=== PATIENT | male | born 1980 | race Caucasian/White ===

== ENCOUNTER 2017-07-09 15:26 | Inpatient (IN) | payer OTHER ==
[~2017-07-09] VITALS: Ht 175.3 cm; Wt 154.2 kg
--- NOTE | 2017-07-09 16:12 | ED GENERAL ADULT ---
See Addendum History of Present Illness General Chief Complaint: ETOH/Drug Related Complaint Stated Complaint: ETOH DETOX Source: patient, family Exam Limitations: no limitations Vital Signs & Intake/Output Vital Signs & Intake/Output Vital Signs Date Time Temp Pulse Resp B/P B/P Pulse O2 O2 Flow FiO2 Mean Ox Delivery Rate 07/10 1224 98.5 84 20 142/110 07/10 1224 98.5 84 20 142/110 98 Room Air 07/10 1015 85 18 160/110 07/10 1015 85 18 160/110 98 Room Air Room Air 07/10 0845 98.7 87 18 180/100 07/10 0818 98.7 87 18 180/100 98 Room Air 07/10 0815 98.7 87 18 180/100 07/10 0614 98.1 120 18 184/118 07/10 0534 98.0 71 20 119/79 07/10 0330 98.0 70 20 122/80 07/10 0130 98.0 70 20 118/72 07/09 2330 98.0 72 20 132/84 07/09 2308 98.2 92 18 157/95 95 Room Air 07/09 2116 97.8 89 18 147/93 07/09 2116 97.8 89 18 147/93 95 Room Air 07/09 1901 98.7 89 17 151/76 07/09 1900 98.7 89 16 151/76 95 Room Air 07/09 1705 Room Air 07/09 1700 98.0 94 17 158/98 07/09 1700 98.0 94 17 158/90 94 Room Air 07/09 1537 96.7 102 18 170/114 95 Room Air ED Intake and Output 07/10 0000 07/09 1200 Intake Total Output Total Balance Patient 350 lb Weight Weight Reported by Patient Measurement Method Allergies Coded Allergies: No Known Allergies (07/09/17) Triage Note: PT STATES HE DRINKS TO MAKE HIMSELF FEEL OK. PT UNSURE OFHOW MUCH HER DRINKS DAILY. PT STATES HE KICKED ALL THE OTHER DRUGS HE USED BUT HE CAN'T KICK THIS. PT STATES HE HAS BEEN DRINKING FOR THE PAST MONTH. PT HAS NEVER GONE THROUGH ETOH DETOX. PT STATES HE GETS VERY SHAKEY WHEN HE TRIES TO STOP DRINKING AND THAT IS WHY HE WANTS TO STOP. PT DENIES SEIZURE ACTIVITY. Triage Nurses Notes Reviewed? yes Onset: Gradual Duration: worse persistent since (1 MONTH) Timing: recent history Injury Environment: home Severity: severe Severity Numbers: 10 No Modifying Factors: none HPI: Pako is a 36-year-old male presenting to the emergency department requesting alcohol detox. He has been drinking alcohol daily for the past year and a half but it's been worse over the past 1 month. He usually drinks a pint of vodka daily. Usually mixes it with Gatorade. When he does not drink he feels very shaky. He needs to drink in the morning. Last drink was just prior to arrival. Denies any other drug use. He currently takes methadone daily for 4 history of opiate abuse. Patient denying any chest pain palpitations or shortness of breath. No abdominal pain. He does report that he's been increasingly depressed and uses alcohol to cope with his symptoms. When he does not drink he does not want to do anything. (Daniela Santos) Past History Travel History Traveled to [place] past 21 day No Medical History Any Pertinent Medical History? see below for history Psychiatric: alcohol dependence, POLYSUBTANCE ABUSE Surgical History Surgical History: non-contributory Psychosocial History What is your primary language Amharic Tobacco Use: Never used ETOH Use: alcoholic Illicit Drug Use: heroin Family History Hx Contributory? No (Daniela Santos) Review of Systems Review of Systems Constitutional: Reports: no symptoms. Comments Review of systems: See HPI, All other systems negative. Constitutional, no chills fever or weight loss HEENT: No visual changes no sore throat no congestion Cardiovascular: No chest pain ,palpitation , orthopnea or ankle swelling Skin, no jaundice no rashes Respiratory: No dyspnea cough sputum or hemoptysis GI: No nausea no vomiting : No dysuria No hematuria Muscle skeletal: no back pain, no neck pain, Neurologic: No numbness no confusion Psych: Positive stress, anxiety, positive depression Heme/endocrine: No bruising no bleeding no polyuria or polydipsia Immunology: No splenectomy or history of AIDS (Daniela Santos) Physical Exam Physical Exam General Appearance: no apparent distress, alert, awake, anxious, obese Comments: Well-developed well-nourished person in no acute distress HEENT: Normocephalic, atraumatic Neck: Normal inspection Back: Nontender Cardiovascular: Regular rate and rhythms no murmurs rubs or gallops, normal JVP Respiratory: Chest nontender. No respiratory distress.breath sounds clear to auscultation bilaterally Extremity: No edema. Neuro: Alert oriented x3 Skin: No appreciable rash on exposed skin, skin is warm and dry. Psych: Slightly anxious appearing, tearful , memory and judgment is normal. Core Measures ACS in differential dx? No CVA/TIA Diagnosis: No Sepsis Present: No Sepsis Focused Exam Completed? No (Darwin CROWELL,Daniela) Progress Differential Diagnoses I considered the following diagnoses in my evaluation of the patient: alcohol intoxication, alcohol withdrawal, polysubstance abuse, electrolyte abnormality Plan of Care: Orders Procedure Date/time Status Regular Diet 07/10 B Active Patient Data 07/10 1404 Active OXYGEN SETUP (GEN) 07/10 1342 Active Saline Lock 07/10 1342 Active Admit to inpatient 07/10 1342 Active Vital Signs 07/10 1342 Active Activity/Ambulation 07/10 1342 Active Code Status 07/10 1342 Active CASE MANAGEMENT CONSULT 07/10 0844 Active CASE MANAGEMENT CONSULT 07/10 0023 Active ETHANOL 07/09 2331 Complete ED CRISIS PSYCH CONSULT 07/09 1842 Active CIWA 07/09 1613 Active URINE DRUG SCREEN FOR ER ONLY 07/09 1613 Complete MAGNESIUM 07/09 1613 Complete LIPASE 07/09 1613 Complete ETHANOL 07/09 1613 Complete COMPREHENSIVE METABOLIC PANEL 07/09 1613 Complete CBC WITHOUT DIFFERENTIAL 07/09 1613 Complete Current Medications Sig/Vasu Start time Last Medication Dose Stop Time Status Admin Lorazepam 1 MG Q2P PRN 07/10 0845 AC 07/10 (Ativan) 1237 Lorazepam 2 MG Q2P PRN 07/10 0845 AC (Ativan) Methadone HCl 130 MG ONCE ONE 07/10 0630 CAN (Dolophine) 07/10 0631 Ondansetron HCl 4 MG Q4-6 PRN PRN 07/10 0615 AC 07/10 (Zofran) 0613 Gabapentin 300 MG Q8 07/10 0008 UNVr 07/10 (Neurontin) 0613 Oxycodone/ 0 .STK-MED ONE 07/09 1643 CAN Acetaminophen (Percocet) Laboratory Tests 07/10/17 0005: Serum Alcohol 148.0 07/09/17 1830: Urine Opiates Screen < 100.00, Methadone Screen > 735 H, Barbiturate Screen < 60, Ur Phencyclidine Scrn < 6.00, Amphetamines Screen < 100, U Benzodiazepines Scrn < 85, Urine Cocaine Screen < 50, Urine Cannabis Screen < 5.00 07/09/17 1625: Anion Gap 13, Estimated GFR > 60, BUN/Creatinine Ratio 7.5, Glucose 101 H, Calcium 8.6, Magnesium 1.8, Total Bilirubin 0.9, AST 411 H, ALT 178 H, Alkaline Phosphatase 178 H, Total Protein 8.3 H, Albumin 4.3, Globulin 4.0, Albumin/Globulin Ratio 1.1, Lipase 249, CBC w Diff NO MAN DIFF REQ, RBC 4.02 L, MCV 95.6 H, MCH 32.2 H, RDW 14.2, MPV 8.5, Gran % 56.9, Lymphocytes % 35.7, Monocytes % 5.4, Eosinophils % 1.7, Basophils % 0.3, Absolute Granulocytes 4.0, Absolute Lymphocytes 2.5, Absolute Monocytes 0.4, Absolute Eosinophils 0.1, Absolute Basophils 0, PUBS MCHC 33.7, Serum Alcohol 363.0 Initial ED EKG: none Hand-Off Endorsed To: Rayray Morel MD Endorsed Time: 0100 Pending: other (Daniela Santos) Hand-Off Endorsed To: Demar Hylton MD (Rayray Morel MD) Comments: Upon arising alcohol withdrawal symptoms increased with visual hallucination nausea diaphoresis headache. Case management consult patient cleared for hospitalization. (Demar Hylton MD) Departure Departure Disposition: STILL A PATIENT Condition: Stable Referrals: Patient Has No Primary Care Dr (PCP/Family) Departure Forms: Customer Survey General Discharge Information (Daniela Santos) PA/TECHNOLOGY CONSULTANT Co-Sign Statement Statement: ED Attending supervision documentation- [] I saw and evaluated the patient. I have also reviewed all the pertinent lab results and diagnostic results. I agree with the findings and the plan of care as documented in the PA's/TECHNOLOGY CONSULTANT's documentation. [x] I have reviewed the ED Record and agree with the PA's/TECHNOLOGY CONSULTANT's documentation. [] Additions or exceptions (if any) to the PAs/TECHNOLOGY CONSULTANT's note and plan are summarized below: [] (Rayray Morel MD) Departure Time of Disposition: 1343 Clinical Impression Primary Impression: Alcohol withdrawal hallucinosis Secondary Impressions: Alcohol abuse Alcohol withdrawal Qualifiers: Complication of substance-induced condition: with unspecified complication Qualified Code: F10.239 - Alcohol dependence with withdrawal, unspecified Admission Note Spoke With: Kenneth Mcguire MD Documentation of Exam: Documentation of any treatments & extenuating circumstances including Concerns Regarding Discharge (functional status, medication knowledge or non-compliance, living conditions, etc.) that warrant an admission rather than observation: Benzodiazepine to prevent alcohol withdrawal serial CIWA medication adjustment psychiatry evaluation for alcohol dependence continuing care discharge planning Alcohol Withdrawl Admission ED Alcohol Detox Admission d/t: Alcohol Hallucinosis (Warner HARRIS,Demar) Critical Care Note Critical Care Note Critical Care Time: non-applicable (Darwin CROWELL,Daniela) Critical Care Note Critical Care Time: 30-74 min (40) (Demar Hylton MD)
[2017-07-09 16:49] LABS: ABSOLUTE BASOPHIL COUNT 0 /CUMM (0.0-0.2); ABSOLUTE EOSINOPHIL COUNT 0.1 /CUMM (0.0-0.7); ABSOLUTE LYMPH COUNT 2.5 /CUMM (1.2-3.4); ABSOLUTE MONOCYTE COUNT 0.4 /CUMM (0.10-0.60); BASOPHIL % 0.3 % (0.0-2.0); EOSINOPHIL % 1.7 % (0-5); GRANULOCYTE % 56.9 % (42.2-75.2); HEMATOCRIT 38.4 % (42-52); MEAN CORPUSCULAR HGB 32.2 PG (27.0-31.0); MEAN CORPUSCULAR HGB CONC 33.7 G/DL (33.0-37.0); MEAN CORPUSCULAR VOLUME 95.6 FL (80.0-94.0); MEAN PLATELET VOLUME 8.5 FL (7.4-10.4); PLATELET COUNT 213 /CUMM (130-400); RBC DISTRIBUTION WIDTH 14.2 % (11.5-14.5); RED BLOOD CELL CT 4.02 /CUMM (4.70-6.10)
[2017-07-09 17:00] VITALS: BP 158/98
[2017-07-09 19:01] VITALS: BP 151/76
[2017-07-09 21:16] VITALS: BP 147/93
[2017-07-09 23:30] VITALS: BP 132/84
[2017-07-10] VITALS (12 sets, daily range): BP systolic 118–184; BP diastolic 72–134
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
[2017-07-11] VITALS (12 sets, daily range): BP systolic 112–162; BP diastolic 80–118
--- NOTE | 2017-07-11 04:52 | Event Note ---
Event Note Event Note: S: CIWA running high patient, patient having visual and auditory hallucinations B: Patient is a 36-year-old male with a past medical history of obesity with gastric bypass in March 2014, chronic back pain currently on methadone, previously on oxycodone and had one admission for oxycodone detox 15 years ago presenting for alcohol withdrawal. A/R: Patient evaluated. Was sitting comfortably in bed. Not agitated. Continues to have visual and auditory hallucination CIWA Running high since midnight 16, 18, 21, 21, 21 Patient received 10mg of Ativan from 12am to 5am Patient went wandering off on the floor, was easily redirected to room Patient was evaluated multiple times during the night, he continued to have auditory hallucinations and visual hallucinations subsided he was confused but became oriented to place once. He remained non-agitated and was easily redirected through out the night -There is concern for transfer to ICU as he was requiring more monitoring than usual on general medicine floor. -ICU and telemetry no beds available -Nursing supervisory geographer contacted and agreed to keep patient on general medicine floor -Jose Oneal MD updated and agreed with the plan
[2017-07-11] MEDS ORDERED: CYANOCOBAL1000 MCG/2 IM (09:11)
[2017-07-11 09:52] LABS: ABSOLUTE BASOPHIL COUNT 0 /CUMM (0.0-0.2); ABSOLUTE EOSINOPHIL COUNT 0.2 /CUMM (0.0-0.7); ABSOLUTE GRANULOCYTE CT 3.2 /CUMM (1.4-6.5); ABSOLUTE LYMPH COUNT 1.3 /CUMM (1.2-3.4); ABSOLUTE MONOCYTE COUNT 0.3 /CUMM (0.10-0.60); BASOPHIL % 0.1 % (0.0-2.0); EOSINOPHIL % 3.1 % (0-5); GRANULOCYTE % 64.8 % (42.2-75.2); MEAN CORPUSCULAR HGB 32.7 PG (27.0-31.0); MEAN PLATELET VOLUME 9.5 FL (7.4-10.4); PLATELET COUNT 153 /CUMM (130-400); RBC DISTRIBUTION WIDTH 13.6 % (11.5-14.5); RED BLOOD CELL CT 3.64 /CUMM (4.70-6.10); WHITE BLOOD CELL COUNT 4.9 /CUMM (4.8-10.8)
--- NOTE | 2017-07-11 09:58 | PN- Housestaff ---
Lui HARRIS,[facility] 07/11/17 0958: Subjective Follow-up For: etoh detox Subjective: Fartun scoring 21 CIWA last night x4. Nurses concerned pt needs ICU however no ICU beds availible. Pt CIWA scoring <12 this afternoon. He still has some chills , tremors and anxiety when i visited him this afternooon. Nurses thought patient was hallucinating in the AM. Patient stated that he felt like he was dreaming. Denies any auditory or visual hallucinations this afternoon Review of Systems Constitutional: Reports: see HPI, chills. Cardiovascular: Reports: no symptoms. Respiratory: Reports: no symptoms. Gastrointestinal: Reports: no symptoms. Genitourinary: Reports: no symptoms. Musculoskeletal: Reports: see HPI. Neurological/Psychological: Reports: anxiety. Objective Last 24 Hrs of Vital Signs/I&O Vital Signs Date Time Temp Pulse Resp B/P B/P Pulse O2 O2 Flow FiO2 Mean Ox Delivery Rate 07/11 1999 98.7 96 18 140/100 07/11 1999 98.7 96 18 140/100 07/11 1826 100 150/110 07/11 1800 98.7 100 20 150/110 07/11 1800 98.7 100 20 150/110 93 Room Air 07/11 1600 99.0 80 20 155/100 07/11 1600 99.0 80 20 155/100 94 Room Air 07/11 1413 98.0 92 20 140/98 93 07/11 1200 98.5 101 18 154/118 90 07/11 1045 148/92 07/11 1022 98.5 101 18 154/118 90 07/11 0815 150/94 07/11 0800 98.5 88 18 150/94 90 Room Air 07/11 0653 98.8 89 20 112/80 93 Room Air 07/11 0400 90 150/92 07/11 0145 98.3 95 22 148/98 96 Room Air 07/11 0019 92 158/94 07/10 2300 92 158/92 07/10 2259 98.1 90 20 150/90 94 Room Air Intake & Output 07/11 1600 07/11 0800 07/11 0000 Intake Total 500 500 640 Output Total Balance 500 500 640 Intake, IV 0 Intake, Oral 500 500 640 Number 0 0 0 Bowel Movements Patient 340 lb Weight Weight Reported by Patient Measurement Method Physical Exam General Appearance: Alert, Oriented X3, Cooperative, Mild Distress Cardiovascular: tachycardia Lungs: Clear to Auscultation, Normal Air Movement Abdomen: Normal Bowel Sounds, Soft, No Tenderness Extremities: mild tremors of hands Vascular: 2+ radial pulses Assessment/Plan Assessment: A: 36 yr old with a pmhx of substance abuse and currently on methadone presenting for etoh detox P: #Etoh detox Max CIWA in 24 hrs: 21, multiple times Methadone > 735 etoh 363 -> 148 -cont ativan taper -cont ciwa -zofran prn, omeprazole -Continue multivitamins, B1, folate #Hypertensive urgency Blood pressure max 180/100 -> more stable at 140-150/100-110 #substance abuse -f/u psych and social work consult #transminitis/hepatitis most likely 2/2 to etoh Initial lfts: AST 411, ALT 178, ALP 178 -LFTs are downtrending -cont to monitor #HYPOthyroidism Patient states that he has a history of HYPERhyroidism and was on medications however stopped abruptly because they were not helping. Free t4 0.9, total t3 1.31 TSH 29.1 #chronic back pain -Confirm methadone dose in a.m. with [facility] #depression -f/u psych consult #DVT prophylaxis -Lovenox #FULL CODE Problem List: 1. Alcohol withdrawal 2. Hypothyroid 3. Transaminitis Pain Ratin Pain Location: none Pain Goal: Pain 4 or less Pain Plan: pain pathway Tomorrow's Labs & Rationales: cbc bep lft Mayte Jones 07/11/17 1308: Attending MD Review Statement Attending Statement Attending MD Statement: examined this patient, discuss w/resident/PA/OPERATING ROOM ASSISTANT, agreed w/resident/PA/OPERATING ROOM ASSISTANT, discussed with family, reviewed EMR data (avail), discussed with nursing, discussed with case mgmt, reviewed images, amended to note Attending Assessment/Plan: 36 o/m with pmh of alcohol abuse, Morbid obesity with BMI 47.5 s/p gastric bypass, hyperthyrodism, opiod dependence, smoker not complaint with meds requesting alcohol detox. Patient is found to have alcohol intoxication and admitted for impending alcohol withdrawal delirium tremens. DEIDRE on admission > 300. Patient recieved 24 mg of ativan overnight. He is found sleeoing comfortably in bed with no acute distress. Vitals reviewed. Continue CIWA, ativan protocol as per CIWA, thiamine, folic acid, clonidine prn for bp control, confirmed methadone in ER 120mg, pysch and SW eval. gi/dvt prophyalxis full code. Low threshold for ICU transfer if needs drip, closely monitor hemodynamcis. assistant food service manager aware.
[2017-07-12] VITALS (12 sets, daily range): BP systolic 138–152; BP diastolic 90–118
[2017-07-12] MEDS ORDERED: LEVOXYL75 MCG PO (05:43)
[2017-07-12 08:19] LABS: ABSOLUTE BASOPHIL COUNT 0 /CUMM (0.0-0.2); ABSOLUTE EOSINOPHIL COUNT 0.2 /CUMM (0.0-0.7); ABSOLUTE GRANULOCYTE CT 3.7 /CUMM (1.4-6.5); ABSOLUTE LYMPH COUNT 1.6 /CUMM (1.2-3.4); ABSOLUTE MONOCYTE COUNT 0.3 /CUMM (0.10-0.60); BASOPHIL % 0.6 % (0.0-2.0); EOSINOPHIL % 4.1 % (0-5); GRANULOCYTE % 62.8 % (42.2-75.2); HEMATOCRIT 36.3 % (42-52); MEAN CORPUSCULAR HGB 32.8 PG (27.0-31.0); MEAN CORPUSCULAR HGB CONC 34.1 G/DL (33.0-37.0); MEAN CORPUSCULAR VOLUME 96.3 FL (80.0-94.0); MEAN PLATELET VOLUME 9.8 FL (7.4-10.4); PLATELET COUNT 123 /CUMM (130-400); RBC DISTRIBUTION WIDTH 13.9 % (11.5-14.5); RED BLOOD CELL CT 3.77 /CUMM (4.70-6.10)
--- NOTE | 2017-07-12 10:04 | PN- Housestaff ---
Lui HARRIS,[facility] 07/12/17 1003: Subjective Follow-up For: etoh withdrawal Subjective: Patient was agitated this AM. Unsure if he has been getting his methadone. Asking if this hospital is a real place. Went to see patient later this afternoon. He was much more calm and said he was dreaming. Still complaining of occasional tremors. Review of Systems Constitutional: Reports: no symptoms. Cardiovascular: Reports: no symptoms. Respiratory: Reports: no symptoms. Gastrointestinal: Reports: no symptoms. Genitourinary: Reports: no symptoms. Musculoskeletal: Reports: no symptoms. Objective Last 24 Hrs of Vital Signs/I&O Vital Signs Date Time Temp Pulse Resp B/P B/P Pulse O2 O2 Flow FiO2 Mean Ox Delivery Rate 07/12 1337 83 144/118 07/12 1200 98.4 83 20 144/118 07/12 0920 94 155/110 07/12 0730 98.6 96 20 150/104 95 Room Air 07/12 0508 152/110 07/12 0300 98.2 94 18 152/110 07/12 0155 98.3 84 20 152/104 94 07/12 0029 97.5 89 20 96 07/12 0000 97.5 89 20 138/98 07/11 2200 97.9 92 20 162/99 07/11 2000 98.7 96 18 140/100 07/11 2000 98.7 96 18 140/100 07/11 1826 100 150/110 07/11 1800 98.7 100 20 150/110 07/11 1800 98.7 100 20 150/110 93 Room Air 07/11 1600 99.0 80 20 155/100 07/11 1600 99.0 80 20 155/100 94 Room Air Intake & Output 07/12 1600 07/12 0800 07/12 0000 Intake Total 740 Output Total 100 Balance 740 -100 Intake, Oral 740 Number 0 Bowel Movements Output, Urine 100 Physical Exam General Appearance: Alert, Oriented X3, Cooperative, Mild Distress Skin Temp/Moisture Exam: Warm/Dry Cardiovascular: Normal S1, Normal S2, tachycardia Lungs: Clear to Auscultation, Normal Air Movement Abdomen: Normal Bowel Sounds, Soft, No Tenderness Vascular: 2+ radial pulses Assessment/Plan Assessment: A: 36 yr old with a pmhx of substance abuse and currently on methadone presenting for etoh detox P: #Etoh detox Max CIWA in 24 hrs: 19 Methadone > 735 etoh 363 -> 148 -Seen by psychiatry who increased his ativan to 3mg q4 -avoid haldol as qtc >500 -cont ativan taper -cont ciwa -zofran prn, omeprazole -Continue multivitamins, B1, folate -cont his methadone 120mg daily (I confirmed with [facility]T fondation) -follow psych and SW recommendations #Hypertensive urgency Blood pressure max 180/100 -> more stable at 140-150/100-110 -increased clonidine to .2 q8 #substance abuse -f/u psych and social work consult #transminitis/hepatitis most likely 2/2 to etoh Initial lfts: AST 411, ALT 178, ALP 178 -LFTs are downtrending -cont to monitor #HYPOthyroidism Patient states that he has a history of HYPERhyroidism and was on medications however stopped abruptly because they were not helping. Free t4 0.9, total t3 1.31 TSH 29.1 #chronic back pain -Confirm methadone dose in a.m. with [facility] #depression -f/u psych consult #DVT prophylaxis -Lovenox #FULL CODE Problem List: 1. Alcohol withdrawal 2. Hypothyroid Pain Ratin Pain Location: none Pain Goal: Pain 4 or less Pain Plan: pain pathway Tomorrow's Labs & Rationales: cbc bep Mayte Jones 07/12/17 1305: Attending MD Review Statement Attending Statement Attending MD Statement: examined this patient, discuss w/resident/PA/PRIVATE CHEF, agreed w/resident/PA/PRIVATE CHEF, discussed with family, reviewed EMR data (avail), discussed with nursing, discussed with case mgmt, reviewed images, amended to note Attending Assessment/Plan: 36 o/m with pmh of alcohol abuse, Morbid obesity with BMI 47.5 s/p gastric bypass, hyperthyrodism, opiod dependence, smoker not complaint with meds requesting alcohol detox. Patient is found to have alcohol intoxication and admitted for impending alcohol withdrawal delirium tremens. DEIDRE on admission > 300. Patient was hypertensive this am. Patient recieved 24 mg of ativan overnight. He is found sleeoing comfortably in bed with no acute distress. Vitals reviewed. Continue CIWA, ativan protocol as per CIWA, thiamine, folic acid, also on amlodipine, clonidine prn for bp control , confirmed methadone in ER 120mg, pysch and SW eval. gi/dvt prophyalxis full code. Close monitoring. Psych recs follow.
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
[2017-07-13 01:30] VITALS: BP 140/98
[2017-07-13 05:22] VITALS: BP 140/92
--- NOTE | 2017-07-13 07:21 | PN- Housestaff ---
Lui HARRIS,[facility] 07/13/17 0721: Subjective Follow-up For: etoh detox substance abuse Subjective: No acute events overnight. Pt states he feels crappy this morning. Still has tremors of his hands. Review of Systems Constitutional: Reports: see HPI, malaise. Cardiovascular: Reports: no symptoms. Respiratory: Reports: no symptoms. Gastrointestinal: Reports: no symptoms. Genitourinary: Reports: no symptoms. Musculoskeletal: Reports: see HPI (tremor). Objective Last 24 Hrs of Vital Signs/I&O Vital Signs Date Time Temp Pulse Resp B/P B/P Pulse O2 O2 Flow FiO2 Mean Ox Delivery Rate 07/13 1357 98.0 93 20 160/78 94 Room Air Room Air 07/13 1056 140/92 07/13 0522 98.1 87 20 140/92 96 Room Air 07/13 0130 98.3 90 20 140/98 95 07/12 2240 98.4 92 20 146/100 96 Room Air 07/12 2200 98.4 92 20 146/100 Intake & Output 07/13 1600 07/13 0800 07/13 0000 Intake Total 2000 Output Total Balance 2000 Intake, IV 0 Intake, Oral 2000 Number 0 Bowel Movements Physical Exam General Appearance: Alert, Oriented X3, Cooperative, Mild Distress Cardiovascular: mild tachycardia Lungs: Clear to Auscultation, Normal Air Movement Abdomen: Normal Bowel Sounds, Soft, No Tenderness Vascular: 2+ radial pulses Current Medications: Current Medications Sig/Vasu Start time Last Medication Dose Route Stop Time Status Admin Amlodipine Besylate 5 MG DAILY 07/10 1630 AC 07/13 PO 1056 Clonidine 0.2 MG Q8P PRN 07/12 1600 AC PO Enoxaparin Sodium 40 MG DAILY 07/11 1000 AC 07/13 SC 1057 Folic Acid 1 MG DAILY 07/11 1000 AC 07/13 PO 1743 Influenza Virus 0.5 ML ONCE ONE 07/13 0815 DC Vaccine IM 07/13 0816 Levothyroxine Sodium 0.075 MG DAILY AC 07/12 0700 AC 07/13 PO 0600 Lorazepam 2 MG Q4 07/13 1000 AC 07/13 PO 1743 Lorazepam 3 MG Q4 07/12 1400 DC 07/13 PO 0601 Lorazepam 1 MG Q2P PRN 07/10 0845 AC 07/10 PO 1831 Lorazepam 2 MG Q2P PRN 07/10 0845 AC 07/13 PO 0011 Methadone HCl 120 MG 0600 07/13 0600 AC 07/13 PO 0601 Multivitamins 1 TAB DAILY 07/11 1000 AC 07/13 PO 1056 Nicotine 7 MG ONCE ONE 07/12 2215 TX 07/12 TOP 07/12 2216 2332 Nicotine 14 MG DAILY 07/11 0345 AC 07/13 TOP 1056 Omeprazole 20 MG DAILY 07/10 1630 AC 07/13 PO 1056 Ondansetron HCl 4 MG Q4-6 PRN PRN 07/10 0615 07/10 PO 0613 Polyethylene Glycol 17 GM DAILY 07/12 1000 AC 07/12 PO 0919 Senna/Docusate Sodium 2 TAB DAILY PRN 07/12 0600 AC PO Thiamine HCl 100 MG DAILY 07/11 1000 AC 07/13 PO 1743 Last 24 Hrs of Lab/Nilo Results Last 24 Hrs of Labs/Mics: Laboratory Tests 07/13/17 0750: Anion Gap 14, Estimated GFR > 60, BUN/Creatinine Ratio 11.3, Magnesium 1.8, CBC w Diff NO MAN DIFF REQ, RBC 3.63 L, MCV 96.9 H, MCH 33.0 H, MCHC 34.1, RDW 13.9, MPV 9.0, Gran % 68.0, Lymphocytes % 21.6, Monocytes % 6.2, Eosinophils % 3.8, Basophils % 0.4, Absolute Granulocytes 4.5, Absolute Lymphocytes 1.4, Absolute Monocytes 0.4, Absolute Eosinophils 0.3, Absolute Basophils 0 Assessment/Plan Assessment: A: 36 yr old with a pmhx of substance abuse and currently on methadone presenting for etoh detox P: #Etoh detox Max CIWA in 24 hrs: 14x1 (rest were 0,4,0) Methadone > 735 etoh 363 -> 148 -Seen by psychiatry who decreased his ativan to 2mg q4 today -avoid haldol as qtc >500 -cont ativan taper -cont ciwa -zofran prn, omeprazole -Continue multivitamins, B1, folate -cont his methadone 120mg daily (confirmed with [facility]T fondation) -follow psych and SW recommendations #SW issues Patient needs SW to help set up [employer] insurance for further after discharge care and psychiatric follow up #Hypertensive urgency Blood pressure max 180/100 -> more stable at 140-150/100-110 -continue clonidine to .2 q8 #substance abuse -f/u psych and social work consult #transminitis/hepatitis most likely 2/2 to etoh Initial lfts: AST 411, ALT 178, ALP 178 -LFTs are downtrending -cont to monitor #HYPOthyroidism Patient states that he has a history of HYPERhyroidism and was on medications however stopped abruptly because they were not helping. Free t4 0.9, total t3 1.31 TSH 29.1 #chronic back pain -Confirmed [facility]adone dose with [facility] #depression -f/u psych recs #DVT prophylaxis -Lovenox #FULL CODE Problem List: 1. Alcohol withdrawal 2. Hypothyroid 3. Depression Pain Ratin Pain Location: none Pain Goal: Pain 4 or less Pain Plan: pain pathway Tomorrow's Labs & Rationales: cbc bep lft Mayte Jones 07/13/17 1311: Attending MD Review Statement Attending Statement Attending MD Statement: examined this patient, discuss w/resident/PA/WIND TURBINE MECHANICAL ENGINEER, agreed w/resident/PA/WIND TURBINE MECHANICAL ENGINEER, discussed with family, reviewed EMR data (avail), discussed with nursing, discussed with case mgmt, reviewed images, amended to note Attending Assessment/Plan: 36 o/m with pmh of alcohol abuse, Morbid obesity with BMI 47.5 s/p gastric bypass, hyperthyrodism, opiod dependence, smoker non complaint with meds requesting alcohol detox. Patient is found to have alcohol intoxication and admitted for impending alcohol withdrawal delirium tremens. DEIDRE on admission > 300. Patient still needing clonidine prn for bp control as he is hypertensive. He is found sleeping comfortably in bed with no acute distress. Vitals reviewed. Continue CIWA, ativan protocol as per CIWA, thiamine, folic acid, also on amlodipine, clonidine prn for bp control, confirmed methadone in ER 120mg, pysch and SW eval. gi/dvt prophyalxis full code. Close monitoring. Psych recs follow.
[2017-07-13 08:24] LABS: ABSOLUTE BASOPHIL COUNT 0 /CUMM (0.0-0.2); ABSOLUTE EOSINOPHIL COUNT 0.3 /CUMM (0.0-0.7); ABSOLUTE GRANULOCYTE CT 4.5 /CUMM (1.4-6.5); ABSOLUTE LYMPH COUNT 1.4 /CUMM (1.2-3.4); ABSOLUTE MONOCYTE COUNT 0.4 /CUMM (0.10-0.60); BASOPHIL % 0.4 % (0.0-2.0); EOSINOPHIL % 3.8 % (0-5); HEMATOCRIT 35.1 % (42-52); MEAN CORPUSCULAR HGB CONC 34.1 G/DL (33.0-37.0); MEAN CORPUSCULAR VOLUME 96.9 FL (80.0-94.0); PLATELET COUNT 153 /CUMM (130-400); RBC DISTRIBUTION WIDTH 13.9 % (11.5-14.5); RED BLOOD CELL CT 3.63 /CUMM (4.70-6.10); WHITE BLOOD CELL COUNT 6.7 /CUMM (4.8-10.8)
--- NOTE | 2017-07-13 10:47 | PN- Psychiatry ---
Assessment/Plan Impression: The patient is responding well to the increase of lorazepam in the last 24 hours, not requiring as needed dosing in that time period. We will continue the taper protocol at a safe rate of reduction, as long as he is doing well. Dr. Poe, spring intern, noted that the last EKG on 07/12/17 showed QTc prolongation, and will not order PRN Haldol. The patient is improving, and we do not expect that hallucinosis will occur, which might indicate PRN Haldol, if severe agitation. The patient will need additional teaching on the use of his Synthroid, which he had stopped pre-hospital due to bad dreams. He again indicated reluctance to attend [facility], fearing that he will lose his methadone bottle privileges, due to alcohol detox. 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 The medical team had called [facility] to verify the patient's methadone dosing, and they likely know he is here for alcohol detox. Suggestion: 1. I will order lorazepam 2 mg PO every 4 hours, which we will review on the morning of 07/14/17. 2. Continue as needed lorazepam, per [facility] protocol. 3. The EKG of 07/12/1883 SR and QTc 502 mS, and antipsychotics in the event of severe agitation may not be given until QTc is less than 475. 4. SW consult to assist with aftercare planning. 5. Continue daily thiamine, MVI, folic acid. 6. If severe or violent agitation or aggression, please request comment from cardiology before considering haloperidol. If approved, consider haloperidol 1 to 2 mg, PO if possible, IM if unable to take PO, every 12 hours as needed. Before administration: ensure that there are no arrhythmias and that QTc is less than 475 mS. Also, monitor and replete potassium and magnesium to the upper portion of the normal range. Hold for respiratory depression or oversedation. We will continue to follow along with you. Thank you for this consult. Subjective Subjective: Alert and oriented, but off by one month. The patient reports that he slept well , and he is hungry and eating well. He denies AH, VH, or TH, and presents no laura delusions. He denies SI or HI, and is agreeable to continue treatment for ETOH detox. Objective Last 24 Hrs of Vital Signs/I&O Vital Signs Date Time Temp Pulse Resp B/P B/P Pulse O2 O2 Flow FiO2 Mean Ox Delivery Rate 07/13 0522 98.1 87 20 140/92 96 Room Air 07/13 0130 98.3 90 20 140/98 95 07/12 2240 98.4 92 20 146/100 96 Room Air 07/12 2200 98.4 92 20 146/100 07/12 1800 97.8 88 20 150/90 07/12 1600 97.8 88 20 150/90 07/12 1600 97.8 88 20 150/90 94 Room Air 07/12 1400 98.6 83 20 144/118 07/12 1337 83 144/118 07/12 1200 98.4 83 20 144/118 Physical Exam: Not performed Physical Exam General Appearance: no apparent distress, alert, awake, comfortable Neurologic/Psychiatric: awake, alert, oriented x 3, normal mood/affect Current Medications: Current Medications Sig/Vasu Start time Last Medication Dose Route Stop Time Status Admin Amlodipine Besylate 5 MG DAILY 07/10 1630 AC 07/12 PO 0920 Clonidine 0.2 MG Q8P PRN 07/12 1600 AC PO Clonidine 0.1 MG Q8P PRN 07/10 1545 DC 07/12 PO 1337 Enoxaparin Sodium 40 MG DAILY 07/11 1000 AC 07/12 SC 0925 Folic Acid 1 MG DAILY 07/11 1000 AC 07/12 PO 0919 Influenza Virus 0.5 ML ONCE ONE 07/13 0815 DC Vaccine IM 07/13 0816 Levothyroxine Sodium 0.075 MG DAILY AC 07/12 0700 AC 07/13 PO 0600 Lorazepam 2 MG Q4 07/13 1000 UNVr PO Lorazepam 3 MG Q4 07/12 1400 DC 07/13 PO 0601 Lorazepam See Dose Q1P PRN 07/10 1430 DC 07/12 Insts (1) IV 0555 Lorazepam 2 MG Q6H 07/10 1430 DC 07/12 PO 0925 Lorazepam 1 MG Q2P PRN 07/10 0845 AC 07/10 PO 1831 Lorazepam 2 MG Q2P PRN 07/10 0845 AC 07/13 PO 0011 Methadone HCl 120 MG 0600 07/13 0600 AC 07/13 PO 0601 Multivitamins 1 TAB DAILY 07/11 1000 AC 07/12 PO 0920 Nicotine 7 MG ONCE ONE 07/12 2215 UT 07/12 TOP 07/12 2216 2332 Nicotine 14 MG DAILY 07/11 0345 AC 07/12 TOP 0932 Omeprazole 20 MG DAILY 07/10 1630 AC 07/12 PO 0920 Ondansetron HCl 4 MG Q4-6 PRN PRN 07/10 0615 AC 07/10 PO 0613 Polyethylene Glycol 17 GM DAILY 07/12 1000 AC 07/12 PO 0919 Senna/Docusate Sodium 2 TAB DAILY PRN 07/12 0600 AC PO Thiamine HCl 100 MG DAILY 07/11 1000 AC 07/12 PO 0921 Dose Instructions: (1)Lorazepam: See admin criteria Results Last 24 Hrs of Labs/Mics: Laboratory Tests 07/13 0750 Chemistry Sodium (137 - 145 mmol/L) 140 Potassium (3.5 - 5.1 mmol/L) 3.7 Chloride (98 - 107 mmol/L) 96 L Carbon Dioxide (22 - 30 mmol/L) 29 Anion Gap (5 - 16) 14 BUN (9 - 20 mg/dL) 9 Creatinine (0.7 - 1.2 mg/dL) 0.8 Estimated GFR (>60 ml/min) > 60 BUN/Creatinine Ratio (7 - 25 %) 11.3 Magnesium (1.6 - 2.3 mg/dL) 1.8 Hematology CBC w Diff NO MAN DIFF REQ WBC (4.8 - 10.8 /CUMM) 6.7 RBC (4.70 - 6.10 /CUMM) 3.63 L Hgb (14.0 - 18.0 G/DL) 12.0 L Hct (42 - 52 %) 35.1 L MCV (80.0 - 94.0 FL) 96.9 H MCH (27.0 - 31.0 PG) 33.0 H MCHC (33.0 - 37.0 G/DL) 34.1 RDW (11.5 - 14.5 %) 13.9 Plt Count (130 - 400 /CUMM) 153 MPV (7.4 - 10.4 FL) 9.0 Gran % (42.2 - 75.2 %) 68.0 Lymphocytes % (20.5 - 51.1 %) 21.6 Monocytes % (1.7 - 9.3 %) 6.2 Eosinophils % (0 - 5 %) 3.8 Basophils % (0.0 - 2.0 %) 0.4 Absolute Granulocytes (1.4 - 6.5 /CUMM) 4.5 Absolute Lymphocytes (1.2 - 3.4 /CUMM) 1.4 Absolute Monocytes (0.10 - 0.60 /CUMM) 0.4 Absolute Eosinophils (0.0 - 0.7 /CUMM) 0.3 Absolute Basophils (0.0 - 0.2 /CUMM) 0
[2017-07-13 13:57] VITALS: BP 160/78
[2017-07-13 22:00] VITALS: BP 132/102
[2017-07-14] VITALS (7 sets, daily range): BP systolic 130–150; BP diastolic 72–102
--- NOTE | 2017-07-14 08:09 | PN- Housestaff ---
Lui HARRIS,[facility] 07/14/17 0809: Subjective Follow-up For: etoh withdrawal Subjective: No acute events overnight. Patient tired this AM. States he feels a little better than yesterday buts till tired. Still having tremors occasionally. Review of Systems Constitutional: Reports: malaise. Cardiovascular: Reports: no symptoms. Respiratory: Reports: no symptoms. Gastrointestinal: Reports: no symptoms. Genitourinary: Reports: no symptoms. Musculoskeletal: Reports: see HPI (tremors). Skin: Reports: no symptoms. Objective Last 24 Hrs of Vital Signs/I&O Vital Signs Date Time Temp Pulse Resp B/P B/P Pulse O2 O2 Flow FiO2 Mean Ox Delivery Rate 07/14 0529 97.7 83 22 130/88 95 Room Air 07/14 0208 97.9 84 20 130/98 94 Room Air 07/13 2200 97.9 79 20 132/102 95 Room Air 07/13 1357 98.0 93 20 160/78 94 Room Air Room Air 07/13 1056 140/92 Physical Exam General Appearance: Alert, Oriented X3, Cooperative, No Acute Distress Skin Temp/Moisture Exam: Warm/Dry Cardiovascular: Regular Rate, Normal S1, Normal S2 Lungs: Clear to Auscultation, Normal Air Movement Abdomen: Normal Bowel Sounds, Soft, No Tenderness Vascular: 2+ radial pulses Current Medications: Current Medications Sig/Vasu Start time Last Medication Dose Route Stop Time Status Admin Amlodipine Besylate 5 MG DAILY 07/10 1630 AC 07/13 PO 1056 Clonidine 0.2 MG Q8P PRN 07/12 1600 AC PO Enoxaparin Sodium 40 MG DAILY 07/11 1000 AC 07/13 SC 1057 Folic Acid 1 MG DAILY 07/11 1000 AC 07/13 PO 1743 Levothyroxine Sodium 0.075 MG DAILY AC 07/12 0700 AC 07/14 PO 0506 Lorazepam 2 MG Q4 07/13 1000 AC 07/14 PO 0505 Lorazepam 3 MG Q4 07/12 1400 DC 07/13 PO 0601 Lorazepam 1 MG Q2P PRN 07/10 0845 AC 07/10 PO 1831 Lorazepam 2 MG Q2P PRN 07/10 0845 AC 07/13 PO 2049 Methadone HCl 120 MG 0600 07/13 0600 AC 07/14 PO 0505 Multivitamins 1 TAB DAILY 07/11 1000 AC 07/13 PO 1056 Nicotine 14 MG DAILY 07/11 0345 07/13 TOP 1056 Omeprazole 20 MG DAILY 07/10 1630 AC 07/13 PO 1056 Ondansetron HCl 4 MG Q4-6 PRN PRN 07/10 0615 07/10 PO 0613 Polyethylene Glycol 17 GM DAILY 07/12 1000 AC 07/12 PO 0919 Senna/Docusate Sodium 2 TAB DAILY PRN 07/12 0600 AC PO Thiamine HCl 100 MG DAILY 07/11 1000 AC 07/13 PO 1743 Assessment/Plan Assessment: A: 36 yr old with a pmhx of substance abuse and currently on methadone presenting for etoh detox P: #Etoh detox Max CIWA in 24 hrs: 19x1 (rest were 0,0,,6,5,0) Methadone > 735 etoh 363 -> 148 -currently 2mg q4 ativan -avoid haldol as qtc >500 -cont ativan taper per psych -cont ciwa -zofran prn, omeprazole -Continue multivitamins, B1, folate -cont his methadone 120mg daily (confirmed with [facility]) -follow psych and SW recommendations #SW issues Patient needs to help set up [employer] insurance for further after discharge care and psychiatric follow up #high cholesterol total cholesterol 231, LDL 135, HDL 67 Cholesterol/HDL ratio 3.4 (normal) -life style modification -consider statin outpatient #Hypertensive urgency Blood pressure max 180/100 -> more stable at 130-140/90-100 -continue clonidine to .2 q8 #substance abuse -f/u psych and social work consult #transminitis/hepatitis most likely 2/2 to etoh Initial lfts: AST 411, ALT 178, ALP 178 Current (07/14): T bili 1.4, direct bili 0.9, AST 135, ALT 85, ALP 112 -LFTs are downtrending -cont to monitor #HYPOthyroidism Patient states that he has a history of HYPERhyroidism and was on medications however stopped abruptly because they were not helping. Free t4 0.9, total t3 1.31 TSH 29.1 #chronic back pain -Confirmed methadone dose with [facility] #depression -f/u psych recs #DVT prophylaxis -Lovenox #FULL CODE Problem List: 1. Alcohol abuse 2. Hypothyroid Pain Ratin Pain Location: none Pain Goal: Pain 4 or less Pain Plan: pain pathway Tomorrow's Labs & Rationales: cbc bep lft Mayte Jones 07/14/17 1117: Attending MD Review Statement Attending Statement Attending MD Statement: examined this patient, discuss w/resident/PA/ASPHALT ROLLER OPERATOR, agreed w/resident/PA/ASPHALT ROLLER OPERATOR, discussed with family, reviewed EMR data (avail), discussed with nursing, discussed with case mgmt, reviewed images, amended to note Attending Assessment/Plan: 36 o/m with pmh of alcohol abuse, Morbid obesity with BMI 47.5 s/p gastric bypass, hyperthyrodism, opiod dependence, smoker non complaint with meds requesting alcohol detox. Patient is found to have alcohol intoxication and admitted for impending alcohol withdrawal delirium tremens. DEIDRE on admission > 300. He is sleeping comfortably in bed with no acute distress. Vitals reviewed. Continue CIWA, ativan protocol as per CIWA, thiamine, folic acid, also on amlodipine, clonidine prn for bp control, confirmed methadone in ER 120mg, pysch following, taper as per patricia and THOM lock. Constipation : on miralax/senna. Monitor bowel movement. gi/dvt prophyalxis full code. follow Psych recs.
[2017-07-14 09:58] LABS: ABSOLUTE BASOPHIL COUNT 0 /CUMM (0.0-0.2); ABSOLUTE EOSINOPHIL COUNT 0.2 /CUMM (0.0-0.7); ABSOLUTE GRANULOCYTE CT 4.5 /CUMM (1.4-6.5); ABSOLUTE LYMPH COUNT 1.5 /CUMM (1.2-3.4); ABSOLUTE MONOCYTE COUNT 0.5 /CUMM (0.10-0.60); BASOPHIL % 0.4 % (0.0-2.0); EOSINOPHIL % 2.9 % (0-5); GRANULOCYTE % 67.2 % (42.2-75.2); HEMATOCRIT 35.4 % (42-52); MEAN CORPUSCULAR HGB 32.6 PG (27.0-31.0); MEAN CORPUSCULAR HGB CONC 33.5 G/DL (33.0-37.0); MEAN CORPUSCULAR VOLUME 97.4 FL (80.0-94.0); MEAN PLATELET VOLUME 8.6 FL (7.4-10.4); PLATELET COUNT 157 /CUMM (130-400); RBC DISTRIBUTION WIDTH 14.2 % (11.5-14.5); RED BLOOD CELL CT 3.63 /CUMM (4.70-6.10); WHITE BLOOD CELL COUNT 6.7 /CUMM (4.8-10.8)
[2017-07-14] MEDS ORDERED: ONE DAILY MULT1 EAC2 PO (11:28)
[2017-07-14] MEDS ORDERED: FOLIC ACID1 M1 PO (11:28)
[2017-07-14] MEDS ORDERED: CATAPRES0.2 MG PO (11:28)
[2017-07-14] MEDS ORDERED: VITAMIN B-1100 MG PO (11:28)
[2017-07-14] MEDS ORDERED: AMLODIPINE BESYL5 M1 PO (11:28)
--- NOTE | 2017-07-14 11:29 | Patient Discharge Instructions ---
Discharge Instructions General Discharge Information Special Instructions: Please folllow up with your pcp in 1-2 weeks. Please follow up with your licensed physical therapist assistant in 1-2 weeks for your thyroid. Please continue psychiatric care. Please take your medications as perscribed. Acute Coronary Syndrome Inclusion Criteria At DC or during hospital stay patient has or had the following: Discharge Core Measures Meds if any: Prescribed or Continued at Discharge Meds if any: NOT Prescribed or Continued at Discharge Congestive Heart Failure Inclusion Criteria At DC or during hospital stay patient has or had the following: Discharge Core Measures Meds if any: Prescribed or Continued at Discharge Meds if any: NOT Prescribed or Continued at Discharge Cerebrovascular accident Inclusion Criteria At DC or during hospital stay patient has or had the following: CVA/TIA Diagnosis No Discharge Core Measures Meds if any: Prescribed or Continued at Discharge Meds if any: NOT Prescribed or Continued at Discharge Venous thromboembolism Discharge Core Measures - Per Current guidelines, there needs to be overlap - treatment for the first 5 days of Warfarin therapy. - If discharged on Warfarin prior to 5 days of - overlap therapy, the patient will need to be - assessed for post discharge needs including - *Post discharge parental anticoagulation - *Warfarin and/or parental anticoagulation education - *Follow up date to check INR post discharge Meds if any: Prescribed or Continued at Discharge Note: Overlap Therapy is Warfarin and Anticoagulant Meds if any: NOT Prescribed or Continued at Discharge
--- NOTE | 2017-07-14 15:24 | PN- Psychiatry ---
Assessment/Plan Impression: The patient's CIWA scores are increasing, and his BP was elevated in the late morning. He is now reporting visual hallucinations, in the form of seeing a fly. He states that he has not been accurately reporting his symptoms, visual disturbances, fearing being labeled as a drug-seeker. These conditions suggest holding steady at the current scheduled lorazepam dosing, and monitor for worsening hallucinosis. The patient was encouraged to report his symptoms accurately to treat him most effectively and safely, over the shortest course possible. CIWA from today, 1400: 9-4-7-9-7-7-6-0-8-8-8-87-4-0-0 VS @ 1149: 150/72, 81, 97.8, 20, 92% RA Last 24 hours of lorazepam schedule 12 mg + PRN lorazepam 2 mg = 14 mg No haloperidol required, but should be avoided if possible, due to QTc prolongation in excess of 475 mS. Suggestion: 1. Continue lorazepam, scheduled, at 2 mg PO every 4 hours. Hold for oversedation or respiratory depression; do not hold for sleep. 2. Continue as needed lorazepam, per CIWA protocol. 3. Repeat EKG in preparation of the need for antipsychotics in the event of severe agitation, which may not be given if QTc is greater than 475. 4. SW consult to assist with aftercare planning. 5. Continue daily thiamine, MVI, folic acid. 6. If severe or violent agitation or aggression, please request comment from cardiology before considering haloperidol. If approved, consider haloperidol 1 to 2 mg, PO if possible, IM if unable to take PO, every 12 hours as needed. Before administration: ensure that there are no arrhythmias and that QTc is less than 475 mS. Also, monitor and replete potassium and magnesium to the upper portion of the normal range. Hold for respiratory depression or oversedation. We will continue to follow along with you. Please call logistics solution manager psychiatry over the weekend, X. [phone], or X. [phone], if the patient's alcohol detox worsens, or if you feel it has improved to the point that the lorazepam taper can be continued at a daily reduction of 20%. Thank you for this consult. Subjective Subjective: Alert and oriented. Denies AH or TH, reports visual hallucinations in the form of seeing shadows, like mice, out of the corner of his eye during this interview. He states that he awakened disoriented last night, beleiving thathis father was present, but when he looked, he did not see anyone. Objective Last 24 Hrs of Vital Signs/I&O Vital Signs Date Time Temp Pulse Resp B/P B/P Pulse O2 O2 Flow FiO2 Mean Ox Delivery Rate 07/14 1149 97.8 81 20 150/72 92 Room Air 07/14 1000 74 122/92 07/14 0529 97.7 83 22 130/88 95 Room Air 07/14 0208 97.9 84 20 130/98 94 Room Air 07/13 2200 97.9 79 20 132/102 95 Room Air Intake & Output 07/14 1600 07/14 0800 07/14 0000 Intake Total Output Total Balance Patient 340 lb Weight Physical Exam: Not performed. Physical Exam General Appearance: Drowsy, calm. Neurologic/Psychiatric: awake, oriented x 3 Current Medications: Current Medications Sig/Vasu Start time Last Medication Dose Route Stop Time Status Admin Amlodipine Besylate 5 MG DAILY 07/10 1630 AC 07/14 PO 1000 Clonidine 0.2 MG Q8P PRN 07/12 1600 AC PO Enoxaparin Sodium 40 MG DAILY 07/11 1000 AC 07/14 SC 1001 Folic Acid 1 MG DAILY 07/11 1000 AC 07/14 PO 1216 Levothyroxine Sodium 0.075 MG DAILY AC 07/12 0700 AC 07/14 PO 0506 Lorazepam 2 MG Q4 07/13 1000 AC 07/14 PO 1409 Lorazepam 1 MG Q2P PRN 07/10 0845 AC 07/10 PO 1831 Lorazepam 2 MG Q2P PRN 07/10 0845 AC 07/13 PO 2049 Methadone HCl 120 MG 00 07/13 0600 AC 07/14 PO 0505 Multivitamins 1 TAB DAILY 07/11 1000 AC 07/14 PO 1000 Nicotine 14 MG DAILY 07/11 0345 AC 07/14 TOP 1216 Omeprazole 20 MG DAILY 07/10 1630 AC 07/14 PO 1000 Ondansetron HCl 4 MG Q4-6 PRN PRN 07/10 0615 AC 07/10 PO 0613 Polyethylene Glycol 17 GM DAILY 07/12 1000 AC 07/14 PO 1001 Senna/Docusate Sodium 2 TAB DAILY PRN 07/12 0600 AC PO Thiamine HCl 100 MG DAILY 07/11 1000 AC 07/14 PO 1216 Results Last 24 Hrs of Labs/Mics: Laboratory Tests 07/14 0950 Chemistry Sodium (137 - 145 mmol/L) 142 Potassium (3.5 - 5.1 mmol/L) 3.7 Chloride (98 - 107 mmol/L) 100 Carbon Dioxide (22 - 30 mmol/L) 31 H Anion Gap (5 - 16) 11 BUN (9 - 20 mg/dL) 9 Creatinine (0.7 - 1.2 mg/dL) 1.0 Estimated GFR (>60 ml/min) > 60 BUN/Creatinine Ratio (7 - 25 %) 9.0 Total Bilirubin (0.2 - 1.3 mg/dL) 1.4 H Direct Bilirubin (< 0.4 mg/dL) 0.9 H AST (17 - 59 U/L) 135 H ALT (21 - 72 U/L) 85 H Alkaline Phosphatase (< 127 U/L) 112 Total Protein (6.3 - 8.2 g/dL) 6.8 Albumin (3.5 - 5.0 g/dL) 3.5 Hematology CBC w Diff NO MAN DIFF REQ WBC (4.8 - 10.8 /CUMM) 6.7 RBC (4.70 - 6.10 /CUMM) 3.63 L Hgb (14.0 - 18.0 G/DL) 11.8 L Hct (42 - 52 %) 35.4 L MCV (80.0 - 94.0 FL) 97.4 H MCH (27.0 - 31.0 PG) 32.6 H MCHC (33.0 - 37.0 G/DL) 33.5 RDW (11.5 - 14.5 %) 14.2 Plt Count (130 - 400 /CUMM) 157 MPV (7.4 - 10.4 FL) 8.6 Gran % (42.2 - 75.2 %) 67.2 Lymphocytes % (20.5 - 51.1 %) 22.2 Monocytes % (1.7 - 9.3 %) 7.3 Eosinophils % (0 - 5 %) 2.9 Basophils % (0.0 - 2.0 %) 0.4 Absolute Granulocytes (1.4 - 6.5 /CUMM) 4.5 Absolute Lymphocytes (1.2 - 3.4 /CUMM) 1.5 Absolute Monocytes (0.10 - 0.60 /CUMM) 0.5 Absolute Eosinophils (0.0 - 0.7 /CUMM) 0.2 Absolute Basophils (0.0 - 0.2 /CUMM) 0
[2017-07-15] VITALS (7 sets, daily range): BP systolic 120–142; BP diastolic 76–90
--- NOTE | 2017-07-15 07:58 | PN- Housestaff ---
Lui HARRIS,[facility] 07/15/17 0758: Subjective Follow-up For: pancreatitis Subjective: No acute events overnight. Pt still complaining of hallucinations. Explained to the patient to report the hallucinations to staff as it affects his CIWA score and ativan taper. Patient afraid he will be sent down to psych unit. Reassured patient that he would not be going to [facility] and his hallucinations are part of his withdrawal. Review of Systems Constitutional: Reports: no symptoms. Cardiovascular: Reports: no symptoms. Respiratory: Reports: no symptoms. Gastrointestinal: Reports: no symptoms. Genitourinary: Reports: no symptoms. Musculoskeletal: Reports: no symptoms. Neurological/Psychological: Reports: see HPI (hallucinations). Objective Last 24 Hrs of Vital Signs/I&O Vital Signs Date Time Temp Pulse Resp B/P B/P Pulse O2 O2 Flow FiO2 Mean Ox Delivery Rate 07/15 1403 97.9 69 20 120/76 97 Room Air 07/15 0609 97.6 73 20 132/82 98 07/15 0200 97.7 72 20 140/90 07/15 0153 97.7 72 20 140/90 95 07/15 0009 97.8 78 20 142/88 94 Intake & Output 07/15 1600 07/15 0800 07/15 0000 Intake Total 1600 250 250 Output Total Balance 1600 250 250 Intake, IV 0 10 10 Intake, Oral 1600 240 240 Number 0 Bowel Movements Physical Exam General Appearance: Alert, Oriented X3, Cooperative, No Acute Distress Cardiovascular: Regular Rate, Normal S1, Normal S2 Lungs: Clear to Auscultation, Normal Air Movement Abdomen: Normal Bowel Sounds, Soft, No Tenderness Vascular: 2+ radial pulses Current Medications: Current Medications Sig/Vasu Start time Last Medication Dose Route Stop Time Status Admin Amlodipine Besylate 5 MG DAILY 07/10 1630 AC 07/15 PO 1029 Clonidine 0.2 MG Q8P PRN 07/12 1600 AC 07/14 PO 2110 Enoxaparin Sodium 40 MG DAILY 07/11 1000 AC 07/15 SC 1029 Folic Acid 1 MG DAILY 07/11 1000 AC 07/15 PO 1029 Levothyroxine Sodium 0.075 MG DAILY AC 07/12 0700 AC 07/15 PO 0603 Lorazepam 2 MG Q6 07/15 1200 AC 07/15 PO 1857 Lorazepam 2 MG Q4 07/13 1000 DC 07/15 PO 0604 Lorazepam 1 MG Q2P PRN 07/10 0845 AC 07/15 PO 1035 Lorazepam 2 MG Q2P PRN 07/10 0845 AC 07/14 PO 2109 Methadone HCl 120 MG 0607/13 0600 07/15 PO 0605 Multivitamins 1 TAB DAILY 07/11 1000 AC 07/15 PO 1029 Nicotine 14 MG DAILY 07/11 0345 07/15 TOP 205 Omeprazole 20 MG DAILY 07/10 1630 AC 07/15 PO 1029 Ondansetron HCl 4 MG Q4-6 PRN PRN 07/10 0615 07/10 PO 0613 Polyethylene Glycol 17 GM DAILY 07/12 1000 AC 07/15 PO 1029 Senna/Docusate Sodium 2 TAB DAILY PRN 07/12 0600 AC PO Thiamine HCl 100 MG DAILY 07/11 1000 07/15 PO 1029 Last 24 Hrs of Lab/Nilo Results Last 24 Hrs of Labs/Mics: Laboratory Tests 07/15/17 0758: Anion Gap 15, Estimated GFR > 60, BUN/Creatinine Ratio 13.8, Total Bilirubin 0.9 , Direct Bilirubin 0.8 H, AST 121 H, ALT 82 H, Alkaline Phosphatase 127 H, Total Protein 7.0, Albumin 3.6 Assessment/Plan Assessment: A: 36 yr old with a pmhx of substance abuse and currently on methadone presenting for etoh detox P: #Etoh detox Max CIWA in 24 hrs: 10 Methadone > 735 etoh 363 -> 148 -currently 2mg q4 ativan. -avoid haldol as qtc >500 -cont ativan taper per psych -cont ciwa -zofran prn, omeprazole -Continue multivitamins, B1, folate -cont his methadone 120mg daily (confirmed with [facility] fondation) -follow psych and SW recommendations #SW issues Patient needs to help set up [employer] insurance for further after discharge care and psychiatric follow up #high cholesterol total cholesterol 231, LDL 135, HDL 67 Cholesterol/HDL ratio 3.4 (normal) -life style modification -consider statin outpatient #Hypertensive urgency Blood pressure max 180/100 -> more stable at 120-140s/90-100s -continue clonidine to .2 q8 #substance abuse -f/u psych and social work consult #transminitis/hepatitis most likely 2/2 to etoh Initial lfts: AST 411, ALT 178, ALP 178 Latest (07/14): T bili 1.4, direct bili 0.9, AST 135, ALT 85, ALP 112 -LFTs are downtrending -cont to monitor #HYPOthyroidism Patient states that he has a history of HYPERhyroidism and was on medications however stopped abruptly because they were not helping. Free t4 0.9, total t3 1.31 TSH 29.1 #chronic back pain -Confirmed methadone dose with [facility] #depression -f/u psych recs #DVT prophylaxis -Lovenox #FULL CODE Problem List: 1. Alcohol abuse Pain Ratin Pain Location: none Pain Goal: Pain 4 or less Pain Plan: pain pathway Tomorrow's Labs & Rationales: cbc bep lft Yolis Osman MD 07/15/17 1454: Attending MD Review Statement Attending Statement Attending MD Statement: examined this patient, discuss w/resident/PA/TELEVISION MECHANIC, agreed w/resident/PA/TELEVISION MECHANIC, reviewed EMR data (avail), discussed with nursing, amended to note Attending Assessment/Plan: Patient seen and examined, overall feeling better but still claims that he was having some sweating. He still on significant dose of Ativan in his CIWA score was highest between 10 and 12. Other vital signs are stable. Agree with decreasing his Ativan to 2 mg every 6 hours. Will continue to do further taper in the next 24 hours. Continue Ativan per CIWA protocol also. Due to the rest of the management patient on Lovenox for DVT prophylaxis.
--- NOTE | 2017-07-15 20:53 | Discharge Summary ---
Visit Information Visit Dates Admission Date: 07/10/17 Hospital Course Course Attending Physician: Mayte Jones MD Primary Care Physician: Patient Has No Primary Care Dr Allergies: Coded Allergies: No Known Drug Allergies (NONE 07/18/17) Discharge Instructions General Discharge Information Code Status: Full Code Medications at Discharge Discharge Medications: Start taking the following new medications: Multivitamin (One Daily Multivitamin) 1 EACH TABLET 1 Tablet ORAL DAILY Qty = 30 No Refills Instructions: . Comments: Last Taken: 07/19/17 Time: 0900 AM Thiamine HCl (Vitamin B-1) 100 MG TABLET 1 Tablet ORAL DAILY Qty = 30 No Refills Instructions: . Comments: Last Taken: 07/19/17 Time: 0900 AM Folic Acid (Folic Acid) 1 MG TABLET 1 Tablet ORAL DAILY Qty = 30 No Refills Instructions: . Comments: Last Taken: 07/19/17 Time: 900 AM Amlodipine Besylate (Amlodipine Besylate) 5 MG TABLET 1 Tablet ORAL DAILY Qty = 30 No Refills Instructions: . Comments: Last Taken: 07/19/17 Time: 900AM Clonidine (Catapres) 0.2 MG TABLET 1 Tablet ORAL EVERY 8 HOURS NEEDED as needed for BLOOD PRESSURE Qty = 90 No Refills Instructions: . The following medications have been changed: Old: Levothyroxine Sodium (Levoxyl) 75 MCG TABLET 1 Tablet ORAL DAILY Qty = 30 New: Levothyroxine Sodium (Levoxyl) 75 MCG TABLET 1 Tablet ORAL DAILY Qty = 30 Instructions: .. Comments: Last Taken: 07/19/17 Time: 0600 AM Old: Cyanocobalamin (Vitamin B-12) (Cyanocobalamin Injection) 1,000 MCG/ML VIAL 1 Milliliters INTRAMUSC ONCE A MONTH Qty = 10 New: Cyanocobalamin (Vitamin B-12) (Cyanocobalamin Injection) 1,000 MCG/ML VIAL 1 Milliliters INTRAMUSC ONCE A MONTH Qty = 10 Instructions: . Comments: Last Taken: 07/19/17 Time: 900 AM
[2017-07-16 02:00] VITALS: BP 120/80
[2017-07-16 06:00] VITALS: BP 120/70
[2017-07-16 07:38] VITALS: BP 120/72
--- NOTE | 2017-07-16 08:24 | PN- Housestaff ---
Renaldo HARRIS,[place] 07/16/17 0823: Subjective Follow-up For: alcohol detox Subjective: PATIENT STILL NOTES HALLUCINATIONS, STILL HAS TREMORS. VS wnl. Patient has no specific complaints other than the hallucinations which he knows are part of the detox process. denies abdominal pain. Review of Systems Constitutional: Reports: no symptoms. Neurological/Psychological: Reports: tremors, other (hallucinations). Objective Last 24 Hrs of Vital Signs/I&O Vital Signs Date Time Temp Pulse Resp B/P B/P Pulse O2 O2 Flow FiO2 Mean Ox Delivery Rate 07/16 1402 98.1 68 20 130/70 93 Room Air 07/16 0738 97.3 70 18 120/72 97 Room Air 07/15 2254 98.4 77 18 122/80 94 Room Air 07/15 2200 98.4 77 18 122/88 Intake & Output 07/16 1600 07/16 0800 07/16 0000 Intake Total 1920 480 490 Output Total Balance 1920 480 490 Intake, IV 0 10 Intake, Oral 1920 480 480 Number 0 Bowel Movements Physical Exam General Appearance: Alert, Oriented X3, Cooperative, No Acute Distress Skin: No Rashes, No Breakdown, No Significant Lesion Sepsis Skin Exam (color): Normal for Ethnicity HEENT: Atraumatic Cardiovascular: Regular Rate, Normal S1, Normal S2, No Murmurs Lungs: Clear to Auscultation, Normal Air Movement Abdomen: Normal Bowel Sounds, Soft, No Tenderness, No Hepatospenomegaly Neurological: Normal Speech Extremities: Normal Pulses, tremors Vascular: Normal Pulses, Pulses Symmetrical Current Medications: Current Medications Sig/Vasu Start time Last Medication Dose Route Stop Time Status Admin Amlodipine Besylate 5 MG DAILY 07/10 1630 AC 07/16 PO 1047 Clonidine 0.2 MG Q8P PRN 07/12 1600 07/14 PO 2110 Enoxaparin Sodium 40 MG DAILY 07/11 1000 AC 07/16 SC 1048 Folic Acid 1 MG DAILY 07/11 1000 AC 07/16 PO 1047 Levothyroxine Sodium 0.075 MG DAILY AC 07/12 0700 AC 07/16 PO 0607 Lorazepam 2 MG Q6 07/15 1200 AC 07/16 PO 1306 Lorazepam 1 MG Q2P PRN 07/10 0845 AC 07/15 PO 1035 Lorazepam 2 MG Q2P PRN 07/10 0845 AC 07/14 PO 2109 Methadone HCl 120 MG 0600 07/13 0600 AC 07/16 PO 0607 Multivitamins 1 TAB DAILY 07/11 1000 AC 07/16 PO 1047 Nicotine 14 MG DAILY 07/11 0345 07/15 TOP 2053 Omeprazole 20 MG DAILY 07/10 1630 AC 07/16 PO 1047 Ondansetron HCl 4 MG Q4-6 PRN PRN 07/10 0615 07/10 PO 0613 Polyethylene Glycol 17 GM DAILY 07/12 1000 AC 07/16 PO 1047 Senna/Docusate Sodium 2 TAB DAILY PRN 07/12 0600 AC PO Thiamine HCl 100 MG DAILY 07/11 1000 AC 07/16 PO 1047 Last 24 Hrs of Lab/Nilo Results Last 24 Hrs of Labs/Mics: Laboratory Tests 07/16/17 0745: Anion Gap 11, Estimated GFR > 60, BUN/Creatinine Ratio 15.0, Total Bilirubin 1.0 , Direct Bilirubin 0.8 H, AST 119 H, ALT 78 H, Alkaline Phosphatase 99, Total Protein 6.8, Albumin 3.5, CBC w Diff NO MAN DIFF REQ, RBC 3.70 L, MCV 96.8 H, MCH 32.7 H, MCHC 33.8, RDW 13.8, MPV 9.5, Gran % 66.6, Lymphocytes % 22.2, Monocytes % 7.7, Eosinophils % 3.1, Basophils % 0.4, Absolute Granulocytes 4.3, Absolute Lymphocytes 1.4, Absolute Monocytes 0.5, Absolute Eosinophils 0.2, Absolute Basophils 0 Orders CIWA Score (last 24 hrs): 2 for orientation Assessment/Plan Assessment: A: 36 yr old with a pmhx of substance abuse and currently on methadone presenting for etoh detox P: #Etoh detox Max CIWA in 24 hrs: 10 Methadone > 735 -CHANGED 2mg q6 ativan TO 1MG Q6. -avoid haldol as qtc >500 -cont ativan taper per psych -cont ciwa, currently 2 -zofran prn, omeprazole -Continue multivitamins, B1, folate -cont his methadone 120mg daily (confirmed with APT fondation) -follow psych and SW recommendations -SWITCHED TO [facility]IGAN FOR NAUSEA DUE TO LONG QTC #SW issues Patient needs SW to help set up [employer] insurance for further after discharge care and psychiatric follow up #high cholesterol total cholesterol 231, LDL 135, HDL 67 Cholesterol/HDL ratio 3.4 (normal) -life style modification -consider statin outpatient #Hypertensive urgency Blood pressure max 180/100 -> more stable at 130/70 -continue clonidine to .2 q8 #substance abuse -f/u psych and social work consult #transminitis/hepatitis most likely 2/2 to etoh Initial lfts: AST 411, ALT 178, ALP 178 Latest (07/15): AST 119 ALT 78 -LFTs are downtrending -cont to monitor #HYPOthyroidism Patient states that he has a history of HYPERhyroidism and was on medications however stopped abruptly because they were not helping. Free t4 0.9, total t3 1.31 TSH 29.1 #chronic back pain -Confirmed methadone dose with [facility] #depression -f/u psych recs #DVT prophylaxis -Lovenox #FULL CODE Problem List: 1. Transaminitis 2. Hypertensive urgency 3. Alcohol withdrawal hallucinosis 4. Alcohol withdrawal Pain Ratin Pain Location: NA Pain Goal: Remain pain free Pain Plan: NA Tomorrow's Labs & Rationales: CBC BEP LFTS Yolis Osman MD 07/16/17 1351: Attending MD Review Statement Attending Statement Attending MD Statement: examined this patient, discuss w/resident/PA/RUG RECEIVING CLERK, agreed w/resident/PA/RUG RECEIVING CLERK, reviewed EMR data (avail), discussed with nursing, discussed with case mgmt, reviewed images, amended to note Attending Assessment/Plan: Patient seen and examined, Claims that his head is foggy. Still on high dose ativan. CIWA scores are running low. Vital Signs Date Time Temp Pulse Resp B/P B/P Pulse O2 O2 Flow FiO2 Mean Ox Delivery Rate 07/16 0738 97.3 70 18 120/72 97 Room Air 07/15 2254 98.4 77 18 122/80 94 Room Air 07/15 2200 98.4 77 18 122/88 07/15 1403 97.9 69 20 120/76 97 Room Air on exam; Was sleeping but woke up. cv; s1,s2, rrr resp; clear abd; soft, nt, bs+ ext; no edema. Laboratory Tests 07/16 0745 Chemistry Sodium (137 - 145 mmol/L) 142 Potassium (3.5 - 5.1 mmol/L) 4.1 Chloride (98 - 107 mmol/L) 100 Carbon Dioxide (22 - 30 mmol/L) 31 H Anion Gap (5 - 16) 11 BUN (9 - 20 mg/dL) 12 Creatinine (0.7 - 1.2 mg/dL) 0.8 Estimated GFR (>60 ml/min) > 60 BUN/Creatinine Ratio (7 - 25 %) 15.0 Total Bilirubin (0.2 - 1.3 mg/dL) 1.0 Direct Bilirubin (< 0.4 mg/dL) 0.8 H AST (17 - 59 U/L) 119 H ALT (21 - 72 U/L) 78 H Alkaline Phosphatase (< 127 U/L) 99 Total Protein (6.3 - 8.2 g/dL) 6.8 Albumin (3.5 - 5.0 g/dL) 3.5 Hematology CBC w Diff NO MAN DIFF REQ WBC (4.8 - 10.8 /CUMM) 6.4 RBC (4.70 - 6.10 /CUMM) 3.70 L Hgb (14.0 - 18.0 G/DL) 12.1 L Hct (42 - 52 %) 35.8 L MCV (80.0 - 94.0 FL) 96.8 H MCH (27.0 - 31.0 PG) 32.7 H MCHC (33.0 - 37.0 G/DL) 33.8 RDW (11.5 - 14.5 %) 13.8 Plt Count (130 - 400 /CUMM) 156 MPV (7.4 - 10.4 FL) 9.5 Gran % (42.2 - 75.2 %) 66.6 Lymphocytes % (20.5 - 51.1 %) 22.2 Monocytes % (1.7 - 9.3 %) 7.7 Eosinophils % (0 - 5 %) 3.1 Basophils % (0.0 - 2.0 %) 0.4 Absolute Granulocytes (1.4 - 6.5 /CUMM) 4.3 Absolute Lymphocytes (1.2 - 3.4 /CUMM) 1.4 Absolute Monocytes (0.10 - 0.60 /CUMM) 0.5 Absolute Eosinophils (0.0 - 0.7 /CUMM) 0.2 Absolute Basophils (0.0 - 0.2 /CUMM) 0 A/P; 36-year-old male with history significant for substance abuse, alcohol use, methadone dependence admitted with acute intoxication. Please decrease Ativan to 1 mg every 6 hours. Continue methadone and the rest of the management. DVT prophylaxis: Lovenox
[2017-07-16 08:39] LABS: ABSOLUTE BASOPHIL COUNT 0 /CUMM (0.0-0.2); ABSOLUTE EOSINOPHIL COUNT 0.2 /CUMM (0.0-0.7); ABSOLUTE GRANULOCYTE CT 4.3 /CUMM (1.4-6.5); ABSOLUTE LYMPH COUNT 1.4 /CUMM (1.2-3.4); ABSOLUTE MONOCYTE COUNT 0.5 /CUMM (0.10-0.60); BASOPHIL % 0.4 % (0.0-2.0); EOSINOPHIL % 3.1 % (0-5); GRANULOCYTE % 66.6 % (42.2-75.2); HEMATOCRIT 35.8 % (42-52); MEAN CORPUSCULAR HGB 32.7 PG (27.0-31.0); MEAN CORPUSCULAR HGB CONC 33.8 G/DL (33.0-37.0); MEAN CORPUSCULAR VOLUME 96.8 FL (80.0-94.0); MEAN PLATELET VOLUME 9.5 FL (7.4-10.4); PLATELET COUNT 156 /CUMM (130-400); RBC DISTRIBUTION WIDTH 13.8 % (11.5-14.5); WHITE BLOOD CELL COUNT 6.4 /CUMM (4.8-10.8)
[2017-07-16 14:02] VITALS: BP 130/70
[2017-07-16 22:05] VITALS: BP 130/68
[2017-07-17 05:48] VITALS: BP 138/72
--- NOTE | 2017-07-17 07:23 | PN- Housestaff ---
Lui HARRIS,[facility] 07/17/17 0723: Subjective Follow-up For: etoh Subjective: No acute events overnight. Still hallucinating. Unable to sleep last night however was informed by nursing that patient slept all night. Appears to be very forgetful as he asked for his flu shot, received it and then asked the nurse if he could receive the flu shot. Review of Systems Constitutional: Reports: no symptoms. Cardiovascular: Reports: no symptoms. Respiratory: Reports: no symptoms. Gastrointestinal: Reports: no symptoms. Genitourinary: Reports: no symptoms. Musculoskeletal: Reports: no symptoms. Neurological/Psychological: Reports: see HPI. Objective Last 24 Hrs of Vital Signs/I&O Vital Signs Date Time Temp Pulse Resp B/P B/P Pulse O2 O2 Flow FiO2 Mean Ox Delivery Rate 07/17 0900 75 138/72 07/17 0548 98.1 75 22 138/72 95 Room Air 07/16 2205 98.4 62 20 130/68 95 Room Air 07/16 1402 98.1 68 20 130/70 93 Room Air Physical Exam General Appearance: Alert, Oriented X3, Cooperative, No Acute Distress Skin Temp/Moisture Exam: Warm/Dry Cardiovascular: tachycardia Lungs: Clear to Auscultation, Normal Air Movement Abdomen: Normal Bowel Sounds, Soft, No Tenderness Vascular: 2+ radial pulses Current Medications: Current Medications Sig/Vasu Start time Last Medication Dose Route Stop Time Status Admin Amlodipine Besylate 5 MG DAILY 07/10 1630 AC 07/17 PO 0900 Clonidine 0.2 MG Q8P PRN 07/12 1600 AC 07/14 PO 2110 Enoxaparin Sodium 40 MG DAILY 07/11 1000 AC 07/17 SC 0904 Folic Acid 1 MG DAILY 07/11 1000 AC 07/17 PO 0900 Levothyroxine Sodium 0.075 MG DAILY AC 07/12 0700 AC 07/17 PO 0530 Lorazepam 1 MG Q6 07/16 1800 AC 07/17 PO 0530 Lorazepam 2 MG Q6 07/15 1200 DC 07/16 PO 1306 Lorazepam 1 MG Q2P PRN 07/10 0845 DC 07/15 PO 1035 Lorazepam 2 MG Q2P PRN 07/10 0845 DC 07/14 PO 2109 Methadone HCl 120 MG 0600 07/13 0600 AC 07/17 PO 0531 Multivitamins 1 TAB DAILY 01/23 1000 AC 07/17 PO 0900 Nicotine 14 MG DAILY 07/11 0345 AC 07/17 TOP 0900 Omeprazole 20 MG DAILY 07/10 1630 AC 07/17 PO 0900 Ondansetron HCl 4 MG Q4-6 PRN PRN 07/10 0615 DC 07/10 PO 0613 Polyethylene Glycol 17 GM DAILY 07/12 1000 AC 07/17 PO 0900 Ramelteon 8 MG QPM 07/17 2200 AC PO Ramelteon 8 MG ONCE ONE 07/17 0830 CAN PO 07/17 0831 Senna/Docusate Sodium 2 TAB DAILY PRN 07/12 0600 AC PO Thiamine HCl 100 MG DAILY 07/11 1000 AC 07/17 PO 0900 Trimethobenzamide HCl 200 MG TID PRN 07/16 1630 AC IM Last 24 Hrs of Lab/Nilo Results Last 24 Hrs of Labs/Mics: Laboratory Tests 07/17/17 0806: Sodium Pending, Potassium Pending, Chloride Pending, Carbon Dioxide Pending, Anion Gap Pending, BUN Pending, Creatinine Pending, BUN/Creatinine Ratio Pending , Total Bilirubin Pending, Direct Bilirubin Pending, AST Pending, ALT Pending, Alkaline Phosphatase Pending, Total Protein Pending, Albumin Pending, CBC w Diff NO MAN DIFF REQ, RBC 3.94 L, MCV 96.6 H, MCH 32.7 H, MCHC 33.8, RDW 13.9, MPV 9.4, Gran % 62.9, Lymphocytes % 26.2, Monocytes % 7.1, Eosinophils % 3.4, Basophils % 0.4, Absolute Granulocytes 4.6, Absolute Lymphocytes 1.9, Absolute Monocytes 0.5, Absolute Eosinophils 0.2, Absolute Basophils 0 Assessment/Plan Assessment: A: 36 yr old with a pmhx of substance abuse and currently on methadone presenting for etoh detox P: #Etoh detox Max CIWA in 24 hrs: 4 Methadone > 735 -cont ativan 1MG Q6. -avoid haldol as qtc >500 -cont ativan taper per psych -zofran prn, omeprazole -Continue multivitamins, B1, folate -cont his methadone 120mg daily (confirmed with APT fondation) -follow psych and SW recommendations -SWITCHED TO TIGAN FOR NAUSEA DUE TO LONG QTC #SW issues Patient needs to help set up [employer] insurance for further after discharge care and psychiatric follow up #high cholesterol total cholesterol 231, LDL 135, HDL 67 Cholesterol/HDL ratio 3.4 (normal) -life style modification -consider statin outpatient #Hypertensive urgency Blood pressure max 180/100 -> more stable at 130-140/70s -continue clonidine to .2 q8 #substance abuse -f/u psych and social work consult #transminitis/hepatitis most likely 2/2 to etoh Initial lfts: AST 411, ALT 178, ALP 178 Latest (07/16): AST 119 ALT 78 ALP 99 -LFTs are downtrending -cont to monitor #HYPOthyroidism Patient states that he has a history of HYPERhyroidism and was on medications however stopped abruptly because they were not helping. Free t4 0.9, total t3 1.31 TSH 29.1 #chronic back pain -Confirmed methadone dose with [facility] #depression -f/u psych recs #DVT prophylaxis -Lovenox #FULL CODE Problem List: 1. Alcohol abuse 2. Hypothyroid 3. Transaminitis Pain Ratin Pain Location: none Pain Goal: Pain 4 or less Pain Plan: pain pathway Tomorrow's Labs & Rationales: lft Mayte Jones 07/17/17 1450: Attending MD Review Statement Attending Statement Attending MD Statement: examined this patient, discuss w/resident/PA/BLOOD SPLATTER ANALYST, agreed w/resident/PA/BLOOD SPLATTER ANALYST, discussed with family, reviewed EMR data (avail), discussed with nursing, discussed with case mgmt, reviewed images, amended to note Attending Assessment/Plan: 36 o/m with pmh of alcohol abuse, Morbid obesity with BMI 47.5 s/p gastric bypass, hyperthyrodism, opiod dependence, smoker non complaint with meds requesting alcohol detox. Patient is found to have alcohol intoxication and admitted for impending alcohol withdrawal delirium tremens. DEIDRE on admission > 300. He is sleeping comfortably in bed with no acute distress. Vitals reviewed. Continue CIWA, ativan protocol as per CIWA, thiamine, folic acid, also on amlodipine, clonidine prn for bp control, confirmed methadone in ER 120mg, pysch following, taper as per pysch and THOM lock. Constipation : on miralax/senna. Monitor bowel movement. Add magnesium citrate. gi/dvt prophyalxis full code. follow Psych recs.
[2017-07-17 08:55] LABS: ABSOLUTE BASOPHIL COUNT 0 /CUMM (0.0-0.2); ABSOLUTE EOSINOPHIL COUNT 0.2 /CUMM (0.0-0.7); ABSOLUTE GRANULOCYTE CT 4.6 /CUMM (1.4-6.5); ABSOLUTE LYMPH COUNT 1.9 /CUMM (1.2-3.4); ABSOLUTE MONOCYTE COUNT 0.5 /CUMM (0.10-0.60); BASOPHIL % 0.4 % (0.0-2.0); EOSINOPHIL % 3.4 % (0-5); GRANULOCYTE % 62.9 % (42.2-75.2); HEMATOCRIT 38.1 % (42-52); MEAN CORPUSCULAR HGB 32.7 PG (27.0-31.0); MEAN CORPUSCULAR HGB CONC 33.8 G/DL (33.0-37.0); MEAN CORPUSCULAR VOLUME 96.6 FL (80.0-94.0); MEAN PLATELET VOLUME 9.4 FL (7.4-10.4); PLATELET COUNT 205 /CUMM (130-400); RBC DISTRIBUTION WIDTH 13.9 % (11.5-14.5); RED BLOOD CELL CT 3.94 /CUMM (4.70-6.10); WHITE BLOOD CELL COUNT 7.4 /CUMM (4.8-10.8)
--- NOTE | 2017-07-17 11:43 | PN- Psychiatry ---
Assessment/Plan Impression: The patient's CIWA scores are decreasing, and his BP is lower than last week. The patient was encouraged to report his symptoms accurately to treat him most effectively and safely, over the shortest course possible. CIWA from today, 1000: 8-4-1-7-2-5-3-8-0-2-0-2-2 VS @ 0900: 138/72, 75, 98.1, 22, 95% RA Last 24 hours of lorazepam scheduled 5 mg + PRN lorazepam 0 mg = 5 mg No haloperidol required, but should be avoided if possible, due to QTc prolongation in excess of 475 mS. Scheduled lorazepam reduced by the medical team from 8 mg/24 hours to 4 mg/24 hours on 07/16/17 PM. Please monitor for worsening clinical presentation/CIWA, due to alcohol withdrawal. Suggestion: 1. Continue lorazepam, scheduled, per ETOH Detox protocol. Hold for oversedation or respiratory depression; do not hold for sleep. 2. Continue as needed lorazepam, per CIWA protocol. 3. SW is assisting with aftercare planning. The patient's aunt, Nika, reports that [facility] in [facility], referred the patient to for detox management, and may be an option for [facility] aftercare, provided he can work in the mornings. 5. Continue daily thiamine, MVI, folic acid. We will continue to follow along with you. Subjective Subjective: A+O. Denies AH, VH; presents no laura delusions. He does report a vivid dream state lingering upon awakening, which is not unexpected in alcohol withdrawal, but does not indicate alcoholic hallucinosis. [Note that delirium tremens usually can present within the first 72 hours (Or during active drinking), but can also have a delayed emergence, sometimes a week or more later.] Denies SI or HI. Objective Last 24 Hrs of Vital Signs/I&O Vital Signs Date Time Temp Pulse Resp B/P B/P Pulse O2 O2 Flow FiO2 Mean Ox Delivery Rate 07/17 0900 75 138/72 07/17 0548 98.1 75 22 138/72 95 Room Air 07/16 2205 98.4 62 20 130/68 95 Room Air 07/16 1402 98.1 68 20 130/70 93 Room Air Physical Exam: Not performed Physical Exam General Appearance: no apparent distress, alert, awake Current Medications: Current Medications Sig/Vasu Start time Last Medication Dose Route Stop Time Status Admin Amlodipine Besylate 5 MG DAILY 07/10 1630 AC 07/17 PO 0900 Clonidine 0.2 MG Q8P PRN 07/12 1600 AC 07/14 PO 2110 Enoxaparin Sodium 40 MG DAILY 07/11 1000 AC 07/17 SC 0904 Folic Acid 1 MG DAILY 07/11 1000 AC 07/17 PO 0900 Levothyroxine Sodium 0.075 MG DAILY AC 07/12 0700 AC 07/17 PO 0530 Lorazepam 1 MG Q6 07/16 1800 AC 07/17 PO 1133 Lorazepam 2 MG Q6 07/15 1200 DC 07/16 PO 1306 Lorazepam 1 MG Q2P PRN 07/10 0845 DC 07/15 PO 1035 Lorazepam 2 MG Q2P PRN 07/10 0845 DC 07/14 PO 2109 Methadone HCl 120 MG 0600 07/13 0600 AC 07/17 PO 0531 Multivitamins 1 TAB DAILY 07/11 1000 AC 07/17 PO 0900 Nicotine 14 MG DAILY 07/11 0345 AC 07/17 TOP 0900 Omeprazole 20 MG DAILY 07/10 1630 AC 07/17 PO 0900 Ondansetron HCl 4 MG Q4-6 PRN PRN 07/10 0615 DC 07/10 PO 0613 Polyethylene Glycol 17 GM DAILY 07/12 1000 AC 07/17 PO 0900 Ramelteon 8 MG QPM 07/17 2200 AC PO Ramelteon 8 MG ONCE ONE 07/17 0830 CAN PO 07/17 0831 Senna/Docusate Sodium 2 TAB DAILY PRN 07/12 0600 AC PO Thiamine HCl 100 MG DAILY 07/11 1000 AC 07/17 PO 0900 Trimethobenzamide HCl 200 MG TID PRN 07/16 1630 AC IM Results Last 24 Hrs of Labs/Mics: Laboratory Tests 07/17 0806 Chemistry Sodium (137 - 145 mmol/L) 142 Potassium (3.5 - 5.1 mmol/L) 4.1 Chloride (98 - 107 mmol/L) 101 Carbon Dioxide (22 - 30 mmol/L) 27 Anion Gap (5 - 16) 14 BUN (9 - 20 mg/dL) 11 Creatinine (0.7 - 1.2 mg/dL) 0.8 Estimated GFR (>60 ml/min) > 60 BUN/Creatinine Ratio (7 - 25 %) 13.8 Total Bilirubin (0.2 - 1.3 mg/dL) 0.9 Direct Bilirubin (< 0.4 mg/dL) 0.7 H AST (17 - 59 U/L) 115 H ALT (21 - 72 U/L) 80 H Alkaline Phosphatase (< 127 U/L) 100 Total Protein (6.3 - 8.2 g/dL) 7.5 Albumin (3.5 - 5.0 g/dL) 3.9 Hematology CBC w Diff NO MAN DIFF REQ WBC (4.8 - 10.8 /CUMM) 7.4 RBC (4.70 - 6.10 /CUMM) 3.94 L Hgb (14.0 - 18.0 G/DL) 12.9 L Hct (42 - 52 %) 38.1 L MCV (80.0 - 94.0 FL) 96.6 H MCH (27.0 - 31.0 PG) 32.7 H MCHC (33.0 - 37.0 G/DL) 33.8 RDW (11.5 - 14.5 %) 13.9 Plt Count (130 - 400 /CUMM) 205 MPV (7.4 - 10.4 FL) 9.4 Gran % (42.2 - 75.2 %) 62.9 Lymphocytes % (20.5 - 51.1 %) 26.2 Monocytes % (1.7 - 9.3 %) 7.1 Eosinophils % (0 - 5 %) 3.4 Basophils % (0.0 - 2.0 %) 0.4 Absolute Granulocytes (1.4 - 6.5 /CUMM) 4.6 Absolute Lymphocytes (1.2 - 3.4 /CUMM) 1.9 Absolute Monocytes (0.10 - 0.60 /CUMM) 0.5 Absolute Eosinophils (0.0 - 0.7 /CUMM) 0.2 Absolute Basophils (0.0 - 0.2 /CUMM) 0
[2017-07-17 15:13] VITALS: BP 134/80
[2017-07-17 22:35] VITALS: BP 132/80
[2017-07-18 06:49] VITALS: BP 130/74
--- NOTE | 2017-07-18 07:39 | PN- Housestaff ---
ParkerShakira 07/18/17 0737: Subjective Follow-up For: EtOH detox Subjective: No overnight event. CIWA 0-2. Patient was sleeping when I entered. Breathing comfortably under RA Review of Systems Constitutional: Reports: see HPI. Objective Last 24 Hrs of Vital Signs/I&O Vital Signs Date Time Temp Pulse Resp B/P B/P Pulse O2 O2 Flow FiO2 Mean Ox Delivery Rate 07/18 0649 97.7 72 20 130/74 98 07/17 2235 98.0 75 20 132/80 94 Room Air 07/17 1513 97.1 70 20 134/80 93 Room Air 07/17 0900 75 138/72 Intake & Output 07/18 0800 07/18 0000 07/17 1600 Intake Total 100 800 Output Total Balance 100 800 Intake, Oral 100 800 Physical Exam General Appearance: Pt was sleeping Cardiovascular: Regular Rate Lungs: Clear to Auscultation, Normal Air Movement Current Medications: Current Medications Sig/Vasu Start time Last Medication Dose Route Stop Time Status Admin Amlodipine Besylate 5 MG DAILY 07/10 1630 AC 07/17 PO 0900 Clonidine 0.2 MG Q8P PRN 07/12 1600 AC 07/14 PO 2110 Enoxaparin Sodium 40 MG DAILY 07/11 1000 AC 07/17 SC 0904 Folic Acid 1 MG DAILY 07/11 1000 AC 07/17 PO 0900 Influenza Virus 0.5 ML .STK-MED ONE 07/17 0806 DC Vaccine IM 07/17 0807 Levothyroxine Sodium 0.075 MG DAILY AC 07/12 0700 AC 07/18 PO 0608 Lorazepam 1 MG Q6 07/16 1800 AC 07/18 PO 0609 Lorazepam 1 MG Q2P PRN 07/10 0845 DC 07/15 PO 1035 Lorazepam 2 MG Q2P PRN 07/10 0845 DC 07/14 PO 2109 Methadone HCl 120 MG 0600 07/13 0600 AC 07/18 PO 0609 Multivitamins 1 TAB DAILY 07/11 1000 AC 07/17 PO 0900 Nicotine 14 MG AT BEDTIME 07/17 2200 AC 07/17 TOP 2130 Nicotine 7 MG ONCE ONE 07/17 1945 CAN TOP 07/17 1946 Nicotine 14 MG DAILY 07/11 0345 DC 07/17 TOP 0900 Omeprazole 20 MG DAILY 07/10 1630 AC 07/17 PO 0900 Polyethylene Glycol 17 GM DAILY 07/12 1000 AC 07/17 PO 0900 Ramelteon 8 MG QPM 07/17 2200 AC 07/17 PO 2130 Ramelteon 8 MG ONCE ONE 07/17 0830 CAN PO 07/17 0831 Senna/Docusate Sodium 2 TAB DAILY PRN 07/12 0600 AC PO Thiamine HCl 100 MG DAILY 07/11 1000 AC 07/17 PO 0900 Trimethobenzamide HCl 200 MG TID PRN 07/16 1630 AC IM Last 24 Hrs of Lab/Nilo Results Last 24 Hrs of Labs/Mics: Laboratory Tests 07/17/17 0806: Anion Gap 14, Estimated GFR > 60, BUN/Creatinine Ratio 13.8, Total Bilirubin 0.9 , Direct Bilirubin 0.7 H, AST 115 H, ALT 80 H, Alkaline Phosphatase 100, Total Protein 7.5, Albumin 3.9, CBC w Diff NO MAN DIFF REQ, RBC 3.94 L, MCV 96.6 H, MCH 32.7 H, MCHC 33.8, RDW 13.9, MPV 9.4, Gran % 62.9, Lymphocytes % 26.2, Monocytes % 7.1, Eosinophils % 3.4, Basophils % 0.4, Absolute Granulocytes 4.6, Absolute Lymphocytes 1.9, Absolute Monocytes 0.5, Absolute Eosinophils 0.2, Absolute Basophils 0 Assessment/Plan Assessment: A: 36 yr old with a pmhx of substance abuse and currently on methadone presenting for etoh detox P: #Etoh detox Max CIWA 07/18 overnight: 0-2 Methadone 07/09 > 735 -cont ativan 1MG Q6, pending Psych input for tapering - total 2mg Ativan given overnight. -avoid haldol as qtc >500 -cont ativan taper per psych -zofran prn, omeprazole -Continue multivitamins, B12, folate -cont his methadone 120mg daily (confirmed with [facility] fondation) -follow psych and SW recommendations -SWITCHED TO TIGAN FOR NAUSEA DUE TO LONG QTC #SW issues Patient needs to help set up [employer] insurance for further after discharge care and psychiatric follow up #high cholesterol total cholesterol 231, LDL 135, HDL 67 Cholesterol/HDL ratio 3.4 (normal) -life style modification -consider statin outpatient #Hypertensive urgency Blood pressure max 180/100 -> more stable at 130-140/70s -continue clonidine to 0.2 q8 #substance abuse -f/u psych and social work consult #transminitis/hepatitis most likely 2/2 to etoh Initial lfts: AST 411, ALT 178, ALP 178 Latest (07/16): AST 0.2 ALT 73 ALP 87 -LFTs are downtrending -cont to monitor #HYPOthyroidism Patient states that he has a history of HYPERhyroidism and was on medications however stopped abruptly because they were not helping. Free t4 0.9, total t3 1.31 TSH 29.1 #chronic back pain -Confirmed methadone dose with [employer] [facility] #depression -f/u psych recs #DVT prophylaxis -Lovenox #FULL CODE Problem List: 1. Alcohol withdrawal 2. Transaminitis Pain Ratin Pain Location: NA Pain Goal: Remain pain free Pain Plan: see AP Tomorrow's Labs & Rationales: CBC/BEP Mayte Jones 07/18/17 1236: Attending MD Review Statement Attending Statement Attending MD Statement: examined this patient, discuss w/resident/PA/MICROFILMING DOCUMENT PREPARER, agreed w/resident/PA/MICROFILMING DOCUMENT PREPARER, discussed with family, reviewed EMR data (avail), discussed with nursing, discussed with case mgmt, reviewed images, amended to note Attending Assessment/Plan: 36 o/m with pmh of alcohol abuse, Morbid obesity with BMI 47.5 s/p gastric bypass, hyperthyrodism, opiod dependence, smoker non complaint with meds requesting alcohol detox. Patient is found to have alcohol intoxication and admitted for impending alcohol withdrawal delirium tremens. DEIDRE on admission > 300. He is awake today with no acute distress. Vitals stable. Continue CIWA, ativan protocol as per CIWA, thiamine, folic acid, also on amlodipine, clonidine prn for bp control, confirmed methadone in ER 120mg, pysch following, taper as per patricia and THOM eval. Constipation : on miralax/senna with relief. gi/dvt prophyalxis full code. follow Psych recs. Anticipate dc planning as per THOM and patricia.
--- NOTE | 2017-07-18 11:08 | PN- Psychiatry ---
Assessment/Plan Impression: The patient's CIWA scores are decreasing, and his BP is lower than last week. The patient was encouraged to report his symptoms accurately to treat him most effectively and safely, over the shortest course possible. CIWA from today, 1000: 1-5-8-6-5-3-2-0-4-2-0-2-2 VS @ 0900: 138/72, 75, 98.1, 22, 95% RA Last 24 hours of lorazepam scheduled 5 mg + PRN lorazepam 0 mg = 5 mg No haloperidol required, but should be avoided if possible, due to QTc prolongation in excess of 475 mS. Scheduled lorazepam reduced by the medical team from 8 mg/24 hours to 4 mg/24 hours on 07/16/17 PM. Please monitor for worsening clinical presentation/CIWA, due to alcohol withdrawal. Suggestion: 1. I have decreased lorazepam to 0.5 mg every 6 hours X 6 doses, scheduled, per ETOH Detox protocol. The protocol should be finished after this. Hold for oversedation or respiratory depression; do not hold for sleep. 2. Continue as needed lorazepam, per CIWA protocol. 3. SW is assisting with aftercare planning. The patient's aunt, Nika, reports that [facility] in [place], referred the patient to for detox management, and may be an option for IOP aftercare, provided he can work in the mornings. The patient's aunt indicated earlier that she woul dbe completeing an application for insurance, probably [employer]. 4. Education today on the need for 7-8 hurs of restful sleep, which may require a lifestyle/work hour change, which the patient agrees with, and which he will discuss with his supervisor [employer]. We also discussed sleep hygeine. He will discuss his poor sleep habits with his providers. 5. Continue daily thiamine, MVI, folic acid. We will continue to follow along. Subjective Subjective: Alert, oriented to person, place, year, but not day or date. He reports that his vivid dreams have resolved. He denies AH, VH and presents no laura delusions. He denies SI or HI. Insight and judgement are intact. Objective Last 24 Hrs of Vital Signs/I&O Vital Signs Date Time Temp Pulse Resp B/P B/P Pulse O2 O2 Flow FiO2 Mean Ox Delivery Rate 07/18 0839 130/74 07/18 0649 97.7 72 20 130/74 98 07/17 2235 98.0 75 20 132/80 94 Room Air 07/17 1513 97.1 70 20 134/80 93 Room Air Intake & Output 07/18 1600 07/18 0800 07/18 0000 Intake Total 100 100 Output Total Balance 100 100 Intake, Oral 100 100 Physical Exam: Not performed Physical Exam General Appearance: alert, awake, comfortable Current Medications: Current Medications Sig/Vasu Start time Last Medication Dose Route Stop Time Status Admin Amlodipine Besylate 5 MG DAILY 07/10 1630 AC 07/18 PO 0839 Clonidine 0.2 MG Q8P PRN 07/12 1600 AC 07/14 PO 2110 Enoxaparin Sodium 40 MG DAILY 07/11 1000 AC 07/18 SC 0838 Folic Acid 1 MG DAILY 07/11 1000 AC 07/18 PO 0839 Levothyroxine Sodium 0.075 MG DAILY AC 07/12 0700 AC 07/18 PO 0608 Lorazepam 0.5 MG Q6 07/18 1200 AC PO 07/19 1801 Lorazepam 1 MG Q6 07/16 1800 DC 07/18 PO 0609 Methadone HCl 120 MG 0600 07/13 0600 AC 07/18 PO 0609 Multivitamins 1 TAB DAILY 07/11 1000 AC 07/18 PO 0839 Nicotine 14 MG AT BEDTIME 07/17 2200 AC 07/17 TOP 2130 Nicotine 7 MG ONCE ONE 07/17 1945 CAN TOP 07/17 1946 Nicotine 14 MG DAILY 07/11 0345 DC 07/17 TOP 0900 Omeprazole 20 MG DAILY 07/10 1630 AC 07/18 PO 0839 Polyethylene Glycol 17 GM DAILY 07/12 1000 AC 07/18 PO 0839 Ramelteon 8 MG QPM 07/17 2200 AC 07/17 PO 2130 Senna/Docusate Sodium 2 TAB DAILY PRN 07/12 0600 AC PO Thiamine HCl 100 MG DAILY 07/11 1000 AC 07/18 PO 0839 Trimethobenzamide HCl 200 MG TID PRN 07/16 1630 AC IM Results Last 24 Hrs of Labs/Mics: Laboratory Tests 07/18 0744 Chemistry Total Bilirubin (0.2 - 1.3 mg/dL) 0.7 Direct Bilirubin (< 0.4 mg/dL) 0.6 H AST (17 - 59 U/L) 102 H ALT (21 - 72 U/L) 73 H Alkaline Phosphatase (< 127 U/L) 87 Total Protein (6.3 - 8.2 g/dL) 6.8 Albumin (3.5 - 5.0 g/dL) 3.5
[2017-07-18 14:01] VITALS: BP 130/78
[2017-07-18 22:38] VITALS: BP 126/82
[2017-07-19 06:00] VITALS: BP 132/86
[2017-07-19 06:16] VITALS: BP 132/86
[2017-07-19 08:15] LABS: ABSOLUTE BASOPHIL COUNT 0 /CUMM (0.0-0.2); ABSOLUTE EOSINOPHIL COUNT 0.2 /CUMM (0.0-0.7); ABSOLUTE GRANULOCYTE CT 4.5 /CUMM (1.4-6.5); ABSOLUTE LYMPH COUNT 1.9 /CUMM (1.2-3.4); ABSOLUTE MONOCYTE COUNT 0.6 /CUMM (0.10-0.60); BASOPHIL % 0.3 % (0.0-2.0); EOSINOPHIL % 2.8 % (0-5); HEMATOCRIT 37.6 % (42-52); MEAN CORPUSCULAR HGB 32.4 PG (27.0-31.0); MEAN CORPUSCULAR HGB CONC 33.5 G/DL (33.0-37.0); MEAN CORPUSCULAR VOLUME 96.9 FL (80.0-94.0); MEAN PLATELET VOLUME 9.3 FL (7.4-10.4); PLATELET COUNT 229 /CUMM (130-400); RBC DISTRIBUTION WIDTH 13.5 % (11.5-14.5); RED BLOOD CELL CT 3.88 /CUMM (4.70-6.10); WHITE BLOOD CELL COUNT 7.2 /CUMM (4.8-10.8)
[2017-07-19] MEDS ORDERED: LEVOXYL75 MCG PO ×2 (11:24→12:25)
[2017-07-19] MEDS ORDERED: CYANOCOBAL1000 MCG/2 IM ×2 (11:24→12:25)
--- NOTE | 2017-07-19 12:02 | PN- Housestaff ---
CanalesShakira 07/19/17 1201: Subjective Follow-up For: EtOH detox Subjective: No overnighte event. Patient slept well and had no agitation or insonmia. Eating and drinking all well. Review of Systems Constitutional: Reports: see HPI. Objective Last 24 Hrs of Vital Signs/I&O Vital Signs Date Time Temp Pulse Resp B/P B/P Pulse O2 O2 Flow FiO2 Mean Ox Delivery Rate 07/19 0616 98.1 72 20 132/86 95 Room Air 07/19 0600 98.1 72 20 132/86 07/19 0000 97 Room Air 07/18 2238 98.0 86 20 126/82 97 Room Air Intake & Output 07/19 1600 07/19 0800 07/19 0000 Intake Total 200 Output Total 150 Balance 50 Intake, IV 0 Intake, Oral 200 Number 0 Bowel Movements Output, Urine 150 Physical Exam General Appearance: Alert, Oriented X3, Cooperative, No Acute Distress Cardiovascular: Regular Rate Lungs: Clear to Auscultation, Normal Air Movement Abdomen: Normal Bowel Sounds, Soft, No Tenderness Extremities: No Edema, Normal Pulses Current Medications: Current Medications Sig/Vasu Start time Last Medication Dose Route Stop Time Status Admin Amlodipine Besylate 5 MG DAILY 07/10 1630 DCD 07/19 PO 0916 Clonidine 0.2 MG Q8P PRN 07/12 1600 DCD 07/14 PO 2110 Enoxaparin Sodium 40 MG DAILY 07/11 1000 DCD 07/19 SC 0916 Folic Acid 1 MG DAILY 07/11 1000 DCD 07/19 PO 0915 Levothyroxine Sodium 0.075 MG DAILY AC 07/12 0700 DCD 07/19 PO 0624 Lorazepam 0.5 MG Q6 07/18 1200 DCD 07/19 PO 07/19 1801 1118 Methadone HCl 120 MG 0600 07/13 0600 DCD 07/19 PO 0624 Multivitamins 1 TAB DAILY 07/11 1000 DCD 07/19 PO 0915 Nicotine 14 MG AT BEDTIME 07/170 DCD 07/18 TOP 2142 Omeprazole 20 MG DAILY 07/10 1630 DCD 07/19 PO 0624 Polyethylene Glycol 17 GM DAILY 07/12 1000 DCD 07/19 PO 0916 Ramelteon 8 MG QPM 07/17 2200 DCD 07/18 PO 2141 Senna/Docusate Sodium 2 TAB DAILY PRN 07/12 0600 DCD PO Thiamine HCl 100 MG DAILY 07/11 1000 DCD 07/19 PO 0915 Trimethobenzamide HCl 200 MG TID PRN 07/16 1630 DCD IM Last 24 Hrs of Lab/Nilo Results Last 24 Hrs of Labs/Mics: Laboratory Tests 07/19/17 0728: Anion Gap 11, Estimated GFR > 60, BUN/Creatinine Ratio 15.0, Total Bilirubin 0.7 , Direct Bilirubin 0.5 H, AST 93 H, ALT 73 H, Alkaline Phosphatase 87, Total Protein 7.0, Albumin 3.7, CBC w Diff NO MAN DIFF REQ, RBC 3.88 L, MCV 96.9 H, MCH 32.4 H, MCHC 33.5, RDW 13.5, MPV 9.3, Gran % 62.0, Lymphocytes % 26.3, Monocytes % 8.6, Eosinophils % 2.8, Basophils % 0.3, Absolute Granulocytes 4.5, Absolute Lymphocytes 1.9, Absolute Monocytes 0.6, Absolute Eosinophils 0.2, Absolute Basophils 0 Assessment/Plan Assessment: A: 36 yr old with a pmhx of substance abuse and currently on methadone presenting for etoh detox P: #Etoh detox Max CIWA overnight: 0-2 Methadone 07/09 > 735 -cont ativan 0.5 MG Q6, pending Psych input for tapering - Pending discharge today for outpatient followup. -avoid haldol as qtc >500 -zofran prn, omeprazole -Continue multivitamins, B12, folate -cont his methadone 120mg daily (confirmed with [facility]T fondation) -follow psych and SW recommendations -SWITCHED TO TIGAN FOR NAUSEA DUE TO LONG QTC #SW issues Patient needs to help set up [employer] insurance for further after discharge care and psychiatric follow up #high cholesterol total cholesterol 231, LDL 135, HDL 67 Cholesterol/HDL ratio 3.4 (normal) -life style modification -consider statin outpatient #Hypertensive urgency Blood pressure max 180/100 -> more stable at 130-140/70s -continue clonidine to 0.2 q8 #substance abuse -f/u psych and social work consult #transminitis/hepatitis most likely 2/2 to etoh Initial lfts: AST 411, ALT 178, ALP 178 Latest (07/19): AST 93 ALT 73 ALP 87 -LFTs are downtrending -cont to monitor #HYPOthyroidism Patient states that he has a history of HYPERhyroidism and was on medications however stopped abruptly because they were not helping. Free t4 0.9, total t3 1.31 TSH 29.1 #chronic back pain -Confirmed methadone dose with APT foundation #depression -f/u psych recs #DVT prophylaxis -Lovenox #FULL CODE Problem List: 1. Transaminitis 2. Hypothyroid 3. Alcohol withdrawal Pain Ratin Pain Location: NA Pain Goal: Remain pain free Pain Plan: see AP Tomorrow's Labs & Rationales: NA Mayte Jones 07/19/17 1344: Attending MD Review Statement Attending Statement Attending MD Statement: examined this patient, discuss w/resident/PA/EMU FARMER, agreed w/resident/PA/EMU FARMER, discussed with family, reviewed EMR data (avail), discussed with nursing, discussed with case mgmt, reviewed images, amended to note Attending Assessment/Plan: Pateint seen/examined bedside. Patient denies any new complaints. Patient is medically and vitally stable for discharge. Follow up outpatient with PCP in 3-5 days of discharge and IOP appointment as planned by THOM.
[2017-07-19] MEDS ORDERED: FOLIC ACID1 M1 PO (12:25)
[2017-07-19] MEDS ORDERED: VITAMIN B-1100 MG PO (12:25)
[2017-07-19] MEDS ORDERED: ONE DAILY MULT1 EAC2 PO (12:25)
[2017-07-19] MEDS ORDERED: AMLODIPINE BESYL5 M1 PO (12:25)
[2017-07-19] MEDS ORDERED: CATAPRES0.2 MG PO (12:26)
--- NOTE | 2017-07-19 18:42 | Discharge Summary ---
Visit Information Visit Dates Admission Date: 07/10/17 Discharge Date: 07/19/17 Hospital Course Course Attending Physician: Mayte Jones MD Primary Care Physician: Patient Has No Primary Care Dr Hospital Course: mr. Anguiano is a 36-year-old male with a past medical history of obesity with gastric bypass in March 2014, chronic back pain/opioid dependece currently on methadone, previously on oxycodone and had one admission for oxycodone detox 15 years ago presenting for alcohol withdrawal. The patient stated that he started drinking 1.5 years agoand had progressively increased his alcohol intake and currently drinks about 1 L of vodka a day. The patient stated that he had a withdrawal episode a few weeks ago when he woke up in the morning and started drinking to relieve his withdrawal symptoms. 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 The patient presented to ER for voluntary detox. He denied suicidal thoughts or thoughts of harming others. The patient stated that he used to see psychiatric outpatient providers but stopped due to the lack of insurance. The patient states that he has agreed to see a psychiatric provider during his stay here. The patient denied any fevers, chest pain, palpitations, or tachycardia. Vital signs at admission Afebrile, heart rate 80, blood pressure 170/114 mmHg, saturating well on room air Physical examination General appearance: Mild distress, alert oriented 3, HEENT: PERRLA neck supple, heart S1-S2 normal distant heart sounds, lungs clear to auscultation, abdomen normal bowel sounds, nontender to palpation, spine tender to palpation in the midthoracic region, lower extremities scant edema without any cyanosis/clubbing. Labs are significant for white count of 7, H&H 12/38, MCV 95, BUN/creatinine 6/ 0.8. AST/ALT 4011/178, alkaline phosphatase 178. Total protein 8.3, open 4.3, lipase 249. Toxicology screen is positive for methadone and a serum alcohol level of 263. Patient was admitted to general medicine for the management of the following: #Etoh detox: Patient's CIWA was maxed to 21 upon the first two days of admission and was started on Ativan per CIWA protocol upon admission. Patient's ativan was gradually tapered under psych consult input and was discharged after last dose of Ativan of 0.5mg with CIWA score of 0. Patient was also given multivitamins, B12, Folate, methadone 120mg daily (confirmed with APT foundation), and tigan and omeprazole. Patient was discharged to follow up with outpatient psych in [place], where he has scheduled appointment and also for insurance application. #high cholesterol Upon admission, patient's total cholesterol 231, LDL 135, HDL 67, and Cholesterol/HDL ratio 3.4 (normal). Patient was advised to continue life style modification and may consider statins in outpatient followup. #Hypertensive urgency Upon admission, patient's blood pressure max 180/100 -> more stable at 130-140/ 70s after treatment with clonidine 0.2 every 8 hours as neede and amlodipine 5mg daily. patient was advised to continue those 2 meds after discharge. #Substance abuse/opioid dependence Patient was adivsed to continue methadone per outpatient [facility] foundation after discharge. #transminitis/hepatitis most likely 2/2 to etoh Patient's initial LFTs were: AST 411, ALT 178, ALP 178, and trended down to AST 93 ALT 73 ALP 87 upon discharge. #Hypothyroidism Patient stated that he had a history of Hyperthyroidism and was on medications however stopped abruptly because he thought the meds were not helping and may have caused him hallucinations. Patient was educated on the need of using levothyroxine and he was continued on levothyroxine during hospital stay and after discharge. #chronic back pain Patient was continued on methadone 125mg daily with dose confirmed with APT foundation DVT prophylaxis -Lovenox + ALPS Regular Diet FULL CODE Allergies: Coded Allergies: No Known Drug Allergies (NONE 07/18/17) Pertinent Lab Results: Laboratory Tests 07/19 07/18 0728 0744 Chemistry Sodium (137 - 145 mmol/L) 142 Potassium (3.5 - 5.1 mmol/L) 3.9 Chloride (98 - 107 mmol/L) 101 Carbon Dioxide (22 - 30 mmol/L) 29 Anion Gap (5 - 16) 11 BUN (9 - 20 mg/dL) 12 Creatinine (0.7 - 1.2 mg/dL) 0.8 Estimated GFR (>60 ml/min) > 60 BUN/Creatinine Ratio (7 - 25 %) 15.0 Total Bilirubin (0.2 - 1.3 mg/dL) 0.7 0.7 Direct Bilirubin (< 0.4 mg/dL) 0.5 H 0.6 H AST (17 - 59 U/L) 93 H 102 H ALT (21 - 72 U/L) 73 H 73 H Alkaline Phosphatase (< 127 U/L) 87 87 Total Protein (6.3 - 8.2 g/dL) 7.0 6.8 Albumin (3.5 - 5.0 g/dL) 3.7 3.5 Hematology CBC w Diff NO MAN DIFF REQ WBC (4.8 - 10.8 /CUMM) 7.2 RBC (4.70 - 6.10 /CUMM) 3.88 L Hgb (14.0 - 18.0 G/DL) 12.6 L Hct (42 - 52 %) 37.6 L MCV (80.0 - 94.0 FL) 96.9 H MCH (27.0 - 31.0 PG) 32.4 H MCHC (33.0 - 37.0 G/DL) 33.5 RDW (11.5 - 14.5 %) 13.5 Plt Count (130 - 400 /CUMM) 229 MPV (7.4 - 10.4 FL) 9.3 Gran % (42.2 - 75.2 %) 62.0 Lymphocytes % (20.5 - 51.1 %) 26.3 Monocytes % (1.7 - 9.3 %) 8.6 Eosinophils % (0 - 5 %) 2.8 Basophils % (0.0 - 2.0 %) 0.3 Absolute Granulocytes (1.4 - 6.5 /CUMM) 4.5 Absolute Lymphocytes (1.2 - 3.4 /CUMM) 1.9 Absolute Monocytes (0.10 - 0.60 /CUMM) 0.6 Absolute Eosinophils (0.0 - 0.7 /CUMM) 0.2 Absolute Basophils (0.0 - 0.2 /CUMM) 0 Disposition Summary Disposition Principal Diagnosis: #Alcohol Detox #High Cholesterol #Hypertensive urgency #Substance abuse #Transaminitis #Hypothyrodism #Chronic back pain Additional Diagnosis: As above Discharge Disposition: home or self care Discharge Instructions General Discharge Information Code Status: Full Code Patient's Diet: Regular Patient's Activity: As tolerated Follow-Up Instructions/Appts: Please folllow up with your pcp in 1-2 weeks. Please follow up with your block trimmer in 1-2 weeks for your thyroid. Please continue psychiatric care. Please take your medications as perscribed. Medications at Discharge Discharge Medications: Start taking the following new medications: Multivitamin (One Daily Multivitamin) 1 EACH TABLET 1 Tablet ORAL DAILY Qty = 30 No Refills Instructions: . Comments: Last Taken: 07/19/17 Time: 0900 AM Thiamine HCl (Vitamin B-1) 100 MG TABLET 1 Tablet ORAL DAILY Qty = 30 No Refills Instructions: . Comments: Last Taken: 07/19/17 Time: 0900 AM Folic Acid (Folic Acid) 1 MG TABLET 1 Tablet ORAL DAILY Qty = 30 No Refills Instructions: . Comments: Last Taken: 07/19/17 Time: 900 AM Amlodipine Besylate (Amlodipine Besylate) 5 MG TABLET 1 Tablet ORAL DAILY Qty = 30 No Refills Instructions: . Comments: Last Taken: 07/19/17 Time: 900AM Clonidine (Catapres) 0.2 MG TABLET 1 Tablet ORAL EVERY 8 HOURS NEEDED as needed for BLOOD PRESSURE Qty = 90 No Refills Instructions: . The following medications have been changed: Old: Levothyroxine Sodium (Levoxyl) 75 MCG TABLET 1 Tablet ORAL DAILY Qty = 30 New: Levothyroxine Sodium (Levoxyl) 75 MCG TABLET 1 Tablet ORAL DAILY Qty = 30 Instructions: .. Comments: Last Taken: 07/19/17 Time: 0600 AM Old: Cyanocobalamin (Vitamin B-12) (Cyanocobalamin Injection) 1,000 MCG/ML VIAL 1 Milliliters INTRAMUSC ONCE A MONTH Qty = 10 New: Cyanocobalamin (Vitamin B-12) (Cyanocobalamin Injection) 1,000 MCG/ML VIAL 1 Milliliters INTRAMUSC ONCE A MONTH Qty = 10 Instructions: . Comments: Last Taken: 07/19/17 Time: 900 AM Copies To: UNKNOWN Comments: Last Taken: 07/19/17 Time: 900 AM Copies To: UNKNOWN
== END 2017-07-19 14:46 | DRG 775 ==
LOC: ERH 15:26 → 2NB 07-10 13:42 → ERHI 07-10 13:42 → ENRESERV 07-10 16:41 → ENTRNSPT 07-10 17:20 → EDTRNSPTSTS 07-10 17:23 → 2NB 07-10 17:35 → CMPTRNSPT 07-10 17:48 → 2NB 07-10 19:53 → ENPENDDIS 07-19 12:07 → 2NB 07-19 12:45
PROVIDERS: Internal Medicine; Physician Assistant; Student in an Organized Health Care Education/Training Program
DX: F10.231 Alcohol dependence with withdrawal delirium (principal); Y90.8 Blood alcohol level of 240 mg/100 ml or more; I16.0 Hypertensive urgency; Z68.43 Body mass index [BMI] 50.0-59.9, adult; Z98.84 Bariatric surgery status; R74.0 Nonspecific elevation of levels of transaminase and lactic acid dehydrogenase [LDH]; F32.9 Major depressive disorder, single episode, unspecified; E66.01 Morbid (severe) obesity due to excess calories; M54.9 Dorsalgia, unspecified; Z91.14 Patient's other noncompliance with medication regimen; Z79.891 Long term (current) use of opiate analgesic; Z72.0 Tobacco use; Z91.018 Allergy to other foods; G47.33 Obstructive sleep apnea (adult) (pediatric); E03.9 Hypothyroidism, unspecified; G47.9 Sleep disorder, unspecified
CPT/HCPCS: 2NBP; 36415; 80307; 82436; 93005; 93010; 99232; G0480; J1650; J3101; J3250; J3490; J7060; Q2036